=== PATIENT | female | born 1975 | race American Indian/Alaskan Native ===

== ENCOUNTER 2019-04-14 10:37 | Inpatient (IN) | payer OTHER ==
[2019-04-14] MEDS ORDERED: SODIUM CHLORIDE 0.9% 500 ML 500 ML IV ONE ×2 (10:49→12:30)
[2019-04-14 11:02] LABS: Hematocrit 39.3 % (30.3-42.9); Hemoglobin 12.9 gm/dl (10.1-14.3); Mean Corpuscular HGB Conc 33 % (30-34); Mean Corpuscular Volume 81 fl (79-97); Platelet Count 134 K/mm3 (140-440); Red Blood Count 4.83 M/mm3 (3.65-5.03); Red Cell Distribution Width 14.3 % (13.2-15.2)
[2019-04-14 11:17] LABS: Albumin 3.5 g/dL (3.9-5)
[2019-04-14 11:24] LABS: INR 1.08 (0.87-1.13)
[2019-04-14] MEDS ORDERED: CEFEPIME/NS 2 GM/100 ML 2 GM/100 ML BAG IV ONE (11:26)
--- NOTE | 2019-04-14 12:14 | XRay Report ---
CHEST 1 VIEW INDICATION: possible Sepsis. COMPARISON: None FINDINGS: Support devices: None. Heart: Within normal limits. Lungs/Pleura: No acute air space or interstitial disease. Additional findings: None. IMPRESSION: No acute findings. Signer Name: Bolivar Griffin Jr, MD Signed: 04/14/2019 12:09 PM Workstation Name: [id number]
[2019-04-14] MEDS ORDERED: SODIUM CHLORIDE 0.9% 1000 ML 1,000 ML IV ONE ×2 (12:31→13:46)
[2019-04-14 12:33] LABS: Bacteria,Urine 1+ /HPF (Negative); Bilirubin,Urine NEG (Negative); Blood,Urine MOD (Negative); Color,Urine Amber (Yellow); Mucus,Urine FEW /HPF
[2019-04-14 12:52] LABS: Basophils % (Manual) 0 % (0.0-1.8); Eosinophils % (Manual) 0 % (0.0-4.3); Total Cells Counted 100
[2019-04-14 12:53] LABS: Anisocytosis Few; Platelet Estimate Consistent w Auto
[2019-04-14] MEDS ORDERED: ACETAMINOPHEN 500 MG TAB PO ONE (13:43)
--- NOTE | 2019-04-14 14:10 | Emergency Department Report ---
ED General Adult HPI - General Chief complaint: Skin/Abscess/Foreign Body Stated complaint: SEVERE DEHYDRATION Time Seen by Provider: 04/14/19 11:22 Source: patient Mode of arrival: Wheelchair Limitations: No Limitations - History of Present Illness Initial comments: The patient presents to the emergency department with a chief complaint of not feeling well and having a fever since Sunday. Patient also complains of an abscess underneath her left arm that she's had multiple times in the past. Patient denies any abdominal pain, chest pain, shortness of breath. -: Gradual Severity scale (0 -10): 0 Consistency: constant Improves with: none Worsens with: none Associated Symptoms: denies other symptoms Treatments Prior to Arrival: none - Related Data Allergies Allergy/AdvReac Type Severity Reaction Status Date / Time No Known Allergies Allergy Unverified 04/14/19 10:45 ED Review of Systems ROS: Stated complaint: SEVERE DEHYDRATION Other details as noted in HPI Comment: All other systems reviewed and negative Constitutional: denies: chills, fever Eyes: denies: eye pain, eye discharge, vision change ENT: denies: ear pain, throat pain Respiratory: denies: cough, shortness of breath, wheezing Cardiovascular: denies: chest pain, palpitations Endocrine: no symptoms reported Gastrointestinal: denies: abdominal pain, nausea, diarrhea Genitourinary: denies: urgency, dysuria, discharge Musculoskeletal: denies: back pain, joint swelling, arthralgia Skin: denies: rash, lesions Neurological: denies: headache, weakness, paresthesias Psychiatric: denies: anxiety, depression Hematological/Lymphatic: denies: easy bleeding, easy bruising ED Past Medical Hx - Past Medical History Previous Medical History?: Yes Additional medical history: Chronic lower back pain - Surgical History Past Surgical History?: No - Social History Smoking Status: Never Smoker Substance Use Type: Marijuana ED Physical Exam - General Limitations: No Limitations General appearance: alert, in no apparent distress - Head Head exam: Present: atraumatic, normocephalic - Eye Eye exam: Present: normal appearance, PERRL, EOMI - ENT ENT exam: Present: mucous membranes dry - Neck Neck exam: Present: normal inspection - Respiratory Respiratory exam: Present: normal lung sounds bilaterally. Absent: respiratory distress - Cardiovascular Cardiovascular Exam: Present: normal rhythm, tachycardia. Absent: systolic murmur, diastolic murmur, rubs, gallop - GI/Abdominal GI/Abdominal exam: Present: soft, normal bowel sounds. Absent: distended, tenderness - Extremities Exam Extremities exam: Present: normal inspection, other (left axilla has a lesion consistent with hidradenitis suppurativa) - Back Exam Back exam: Present: normal inspection - Neurological Exam Neurological exam: Present: alert, oriented X3, CN II-XII intact. Absent: motor sensory deficit - Psychiatric Psychiatric exam: Present: normal affect, normal mood - Skin Skin exam: Present: warm, dry, intact, normal color. Absent: rash ED Course Vital Signs 04/14/19 04/14/19 04/14/19 10:53 11:41 13:54 Temperature 101.7 F H 103.2 F H 102.4 F H Pulse Rate 148 H 135 H Respiratory 20 Rate Blood Pressure 108/66 Blood Pressure 120/72 [Right] O2 Sat by Pulse 98 100 Oximetry ED Medical Decision Making - Lab Data Result diagrams: 04/14/19 10:52 04/14/19 10:52 Lab Results 04/14/19 04/14/19 04/14/19 Range/Units 10:52 10:52 10:52 WBC 21.3 H (4.5-11.0) K/mm3 RBC 4.83 (3.65-5.03) M/mm3 Hgb 12.9 (10.1-14.3) gm/dl Hct 39.3 (30.3-42.9) % MCV 81 (79-97) fl MCH 27 L (28-32) pg MCHC 33 (30-34) % RDW 14.3 (13.2-15.2) % Plt Count 134 L (140-440) K/mm3 Add Manual Diff Complete Total Counted 100 Seg Neutrophils % Therapeutic Program Worker Seg Neuts % (Manual) 97.0 H (40.0-70.0) % Band Neutrophils % 0 % Lymphocytes % (Manual) 2.0 L (13.4-35.0) % Reactive Lymphs % (Man) 0 % Monocytes % (Manual) 1.0 (0.0-7.3) % Eosinophils % (Manual) 0 (0.0-4.3) % Basophils % (Manual) 0 (0.0-1.8) % Metamyelocytes % 0 % Myelocytes % 0 % Promyelocytes % 0 % Blast Cells % 0 % Nucleated RBC % Not Reportable Seg Neutrophils # Man 20.7 H (1.8-7.7) K/mm3 Band Neutrophils # 0.0 K/mm3 Lymphocytes # (Manual) 0.4 L (1.2-5.4) K/mm3 Abs React Lymphs (Man) 0.0 K/mm3 Monocytes # (Manual) 0.2 (0.0-0.8) K/mm3 Eosinophils # (Manual) 0.0 (0.0-0.4) K/mm3 Basophils # (Manual) 0.0 (0.0-0.1) K/mm3 Metamyelocytes # 0.0 K/mm3 Myelocytes # 0.0 K/mm3 Promyelocytes # 0.0 K/mm3 Blast Cells # 0.0 K/mm3 WBC Morphology Not Reportable Hypersegmented Neuts Not Reportable Hyposegmented Neuts Not Reportable Hypogranular Neuts Not Reportable Smudge Cells Not Reportable Toxic Granulation Not Reportable Toxic Vacuolation Not Reportable Dohle Bodies Not Reportable Pelger-Huet Anomaly Not Reportable Ab Rods Not Reportable Platelet Estimate Consistent w auto Clumped Platelets Not Reportable Plt Clumps, EDTA Not Reportable Large Platelets Not Reportable Giant Platelets Not Reportable Platelet Satelliting Not Reportable Plt Morphology Comment Not Reportable RBC Morphology Not Reportable Dimorphic RBCs Not Reportable Polychromasia Not Reportable Hypochromasia Not Reportable Poikilocytosis Not Reportable Anisocytosis Few Microcytosis Not Reportable Macrocytosis Not Reportable Spherocytes Not Reportable Pappenheimer Bodies Not Reportable Sickle Cells Not Reportable Target Cells Not Reportable Tear Drop Cells Not Reportable Ovalocytes Not Reportable Helmet Cells Not Reportable [place] Bodies Not Reportable [place] Rings Not Reportable [place] Cells Not Reportable Bite Cells Not Reportable Crenated Cell Not Reportable Elliptocytes Not Reportable Acanthocytes (Spur) Not Reportable Rouleaux Not Reportable Hemoglobin C Crystals Not Reportable Schistocytes Not Reportable Malaria parasites Not Reportable Mg Bodies Not Reportable Hem Pathologist Commnt No PT 13.9 (12.2-14.9) Sec. INR 1.08 (0.87-1.13) VBG pH (7.320-7.420) Sodium 129 L (137-145) mmol/L Potassium 3.4 L (3.6-5.0) mmol/L Chloride 92.7 L (98-107) mmol/L Carbon Dioxide 17 L (22-30) mmol/L Anion Gap 23 mmol/L BUN 49 H (7-17) mg/dL Creatinine 3.8 H (0.7-1.2) mg/dL Estimated GFR 13 ml/min BUN/Creatinine Ratio 13 % Glucose 156 H (65-100) mg/dL Lactic Acid (0.7-2.0) mmol/L Calcium 8.0 L (8.4-10.2) mg/dL Total Bilirubin 0.80 (0.1-1.2) mg/dL AST 25 (5-40) units/L ALT 22 (7-56) units/L Alkaline Phosphatase 74 (35-129) units/L Total Protein 7.2 (6.3-8.2) g/dL Albumin 3.5 L (3.9-5) g/dL Albumin/Globulin Ratio 0.9 % Urine Color (Yellow) Urine Turbidity (Clear) Urine pH (5.0-7.0) Ur Specific [place] (1.003-1.030) Urine Protein (Negative) mg/dL Urine Glucose (UA) (Negative) mg/dL Urine Ketones (Negative) mg/dL Urine Blood (Negative) Urine Nitrite (Negative) Urine Bilirubin (Negative) Urine Urobilinogen (<2.0) mg/dL Ur Leukocyte Esterase (Negative) Urine WBC (Auto) (0.0-6.0) /HPF Urine RBC (Auto) (0.0-6.0) /HPF U Epithel Cells (Auto) (0-13.0) /HPF Urine Bacteria (Auto) (Negative) /HPF Urine Mucus /HPF 04/14/19 04/14/19 04/14/19 Range/Units 10:52 10:52 12:06 WBC (4.5-11.0) K/mm3 RBC (3.65-5.03) M/mm3 Hgb (10.1-14.3) gm/dl Hct (30.3-42.9) % MCV (79-97) fl MCH (28-32) pg MCHC (30-34) % RDW (13.2-15.2) % Plt Count (140-440) K/mm3 Add Manual Diff Total Counted Seg Neutrophils % Seg Neuts % (Manual) (40.0-70.0) % Band Neutrophils % % Lymphocytes % (Manual) (13.4-35.0) % Reactive Lymphs % (Man) % Monocytes % (Manual) (0.0-7.3) % Eosinophils % (Manual) (0.0-4.3) % Basophils % (Manual) (0.0-1.8) % Metamyelocytes % % Myelocytes % % Promyelocytes % % Blast Cells % % Nucleated RBC % Seg Neutrophils # Man (1.8-7.7) K/mm3 Band Neutrophils # K/mm3 Lymphocytes # (Manual) (1.2-5.4) K/mm3 Abs React Lymphs (Man) K/mm3 Monocytes # (Manual) (0.0-0.8) K/mm3 Eosinophils # (Manual) (0.0-0.4) K/mm3 Basophils # (Manual) (0.0-0.1) K/mm3 Metamyelocytes # K/mm3 Myelocytes # K/mm3 Promyelocytes # K/mm3 Blast Cells # K/mm3 WBC Morphology Hypersegmented Neuts Hyposegmented Neuts Hypogranular Neuts Smudge Cells Toxic Granulation Toxic Vacuolation Dohle Bodies Pelger-Huet Anomaly Ab Rods Platelet Estimate Clumped Platelets Plt Clumps, EDTA Large Platelets Giant Platelets Platelet Satelliting Plt Morphology Comment RBC Morphology Dimorphic RBCs Polychromasia Hypochromasia Poikilocytosis Anisocytosis Microcytosis Macrocytosis Spherocytes Pappenheimer Bodies Sickle Cells Target Cells Tear Drop Cells Ovalocytes Helmet Cells [place] Bodies [place] Rings [place] Cells Bite Cells Crenated Cell Elliptocytes Acanthocytes (Spur) Rouleaux Hemoglobin C Crystals Schistocytes Malaria parasites Mg Bodies Hem Pathologist Commnt PT (12.2-14.9) Sec. INR (0.87-1.13) VBG pH 7.468 H (7.320-7.420) Sodium (137-145) mmol/L Potassium (3.6-5.0) mmol/L Chloride (98-107) mmol/L Carbon Dioxide (22-30) mmol/L Anion Gap mmol/L BUN (7-17) mg/dL Creatinine (0.7-1.2) mg/dL Estimated GFR ml/min BUN/Creatinine Ratio % Glucose (65-100) mg/dL Lactic Acid 2.10 H* (0.7-2.0) mmol/L Calcium (8.4-10.2) mg/dL Total Bilirubin (0.1-1.2) mg/dL AST (5-40) units/L ALT (7-56) units/L Alkaline Phosphatase (35-129) units/L Total Protein (6.3-8.2) g/dL Albumin (3.9-5) g/dL Albumin/Globulin Ratio % Urine Color [place] (Yellow) Urine Turbidity Cloudy (Clear) Urine pH 5.0 (5.0-7.0) Ur Specific [place] 1.015 (1.003-1.030) Urine Protein 100 mg/dl (Negative) mg/dL Urine Glucose (UA) 50 (Negative) mg/dL Urine Ketones Neg (Negative) mg/dL Urine Blood Mod (Negative) Urine Nitrite Neg (Negative) Urine Bilirubin Neg (Negative) Urine Urobilinogen 4.0 (<2.0) mg/dL Ur Leukocyte Esterase Mod (Negative) Urine WBC (Auto) 38.0 H (0.0-6.0) /HPF Urine RBC (Auto) 14.0 (0.0-6.0) /HPF U Epithel Cells (Auto) 7.0 (0-13.0) /HPF Urine Bacteria (Auto) 1+ (Negative) /HPF Urine Mucus Few /HPF 04/14/19 Range/Units 12:12 WBC (4.5-11.0) K/mm3 RBC (3.65-5.03) M/mm3 Hgb (10.1-14.3) gm/dl Hct (30.3-42.9) % MCV (79-97) fl MCH (28-32) pg MCHC (30-34) % RDW (13.2-15.2) % Plt Count (140-440) K/mm3 Add Manual Diff Total Counted Seg Neutrophils % Seg Neuts % (Manual) (40.0-70.0) % Band Neutrophils % % Lymphocytes % (Manual) (13.4-35.0) % Reactive Lymphs % (Man) % Monocytes % (Manual) (0.0-7.3) % Eosinophils % (Manual) (0.0-4.3) % Basophils % (Manual) (0.0-1.8) % Metamyelocytes % % Myelocytes % % Promyelocytes % % Blast Cells % % Nucleated RBC % Seg Neutrophils # Man (1.8-7.7) K/mm3 Band Neutrophils # K/mm3 Lymphocytes # (Manual) (1.2-5.4) K/mm3 Abs React Lymphs (Man) K/mm3 Monocytes # (Manual) (0.0-0.8) K/mm3 Eosinophils # (Manual) (0.0-0.4) K/mm3 Basophils # (Manual) (0.0-0.1) K/mm3 Metamyelocytes # K/mm3 Myelocytes # K/mm3 Promyelocytes # K/mm3 Blast Cells # K/mm3 WBC Morphology Hypersegmented Neuts Hyposegmented Neuts Hypogranular Neuts Smudge Cells Toxic Granulation Toxic Vacuolation Dohle Bodies Pelger-Huet Anomaly Ab Rods Platelet Estimate Clumped Platelets Plt Clumps, EDTA Large Platelets Giant Platelets Platelet Satelliting Plt Morphology Comment RBC Morphology Dimorphic RBCs Polychromasia Hypochromasia Poikilocytosis Anisocytosis Microcytosis Macrocytosis Spherocytes Pappenheimer Bodies Sickle Cells Target Cells Tear Drop Cells Ovalocytes Helmet Cells [place] Bodies [place] Rings [place] Cells Bite Cells Crenated Cell Elliptocytes Acanthocytes (Spur) Rouleaux Hemoglobin C Crystals Schistocytes Malaria parasites Mg Bodies Hem Pathologist Commnt PT (12.2-14.9) Sec. INR (0.87-1.13) VBG pH (7.320-7.420) Sodium (137-145) mmol/L Potassium (3.6-5.0) mmol/L Chloride (98-107) mmol/L Carbon Dioxide (22-30) mmol/L Anion Gap mmol/L BUN (7-17) mg/dL Creatinine (0.7-1.2) mg/dL Estimated GFR ml/min BUN/Creatinine Ratio % Glucose (65-100) mg/dL Lactic Acid 2.40 H* (0.7-2.0) mmol/L Calcium (8.4-10.2) mg/dL Total Bilirubin (0.1-1.2) mg/dL AST (5-40) units/L ALT (7-56) units/L Alkaline Phosphatase (35-129) units/L Total Protein (6.3-8.2) g/dL Albumin (3.9-5) g/dL Albumin/Globulin Ratio % Urine Color (Yellow) Urine Turbidity (Clear) Urine pH (5.0-7.0) Ur Specific [place] (1.003-1.030) Urine Protein (Negative) mg/dL Urine Glucose (UA) (Negative) mg/dL Urine Ketones (Negative) mg/dL Urine Blood (Negative) Urine Nitrite (Negative) Urine Bilirubin (Negative) Urine Urobilinogen (<2.0) mg/dL Ur Leukocyte Esterase (Negative) Urine WBC (Auto) (0.0-6.0) /HPF Urine RBC (Auto) (0.0-6.0) /HPF U Epithel Cells (Auto) (0-13.0) /HPF Urine Bacteria (Auto) (Negative) /HPF Urine Mucus /HPF - EKG Data -: EKG Interpreted by Me EKG shows normal: sinus rhythm Rate: tachycardia - Radiology Data Radiology results: report reviewed - Medical Decision Making IV fluids started IV abx given The patient was informed of results Critical Care Time: Yes Critical care time in (mins) excluding proc time.: 35 Critical care attestation.: If time is entered above; I have spent that time in minutes in the direct care of this critically ill patient, excluding procedure time. ED Disposition Clinical Impression: Sepsis, Renal failure Disposition: OP ADMIT IP TO THIS HOSP Is pt being admited?: Yes Does the pt Need Aspirin: No Condition: Fair Referrals: MIMI GODFREY [Other] - 3-5 Days
--- NOTE | 2019-04-14 15:24 | History and Physical Report ---
History of Present Illness Date of examination: 04/14/19 Date of admission: 04/14/19 14:39 Chief complaint: Fever for 2 days History of present illness: 44 year old female with history of recurrent abscesses coming in for Fever since 2 days.Patient has a abscess under her L arm.No cough or abdominal pain.Some dysuria present. Past Medical History Previous Medical History?: Yes Additional medical history: Chronic lower back pain - Surgical History Past Surgical History?: No - Social History Smoking Status: Never Smoker Substance Use Type: Marijuana Family History Htn Review of Systems ROS: Stated complaint: SEVERE DEHYDRATION Other details as noted in HPI Comment: All other systems reviewed and negative Constitutional: denies: chills, fever Eyes: denies: eye pain, eye discharge, vision change ENT: denies: ear pain, throat pain Respiratory: denies: cough, shortness of breath, wheezing Cardiovascular: denies: chest pain, palpitations Endocrine: no symptoms reported Gastrointestinal: denies: abdominal pain, nausea, diarrhea Genitourinary: denies: urgency, dysuria, discharge Musculoskeletal: denies: back pain, joint swelling, arthralgia Skin: denies: rash, lesions Neurological: denies: headache, weakness, paresthesias Psychiatric: denies: anxiety, depression Hematological/Lymphatic: denies: easy bleeding, easy bruising Medications and Allergies Allergies Allergy/AdvReac Type Severity Reaction Status Date / Time No Known Allergies Allergy Unverified 04/14/19 10:45 Home Medications Medication Instructions Recorded Confirmed Last Taken Type Doxepin [SINEquan] 50 mg PO HS 04/14/19 04/14/19 04/10/19 History Gabapentin [Neurontin] 800 mg PO TID 04/14/19 04/14/19 Unknown History Ibuprofen [Motrin 800 MG tab] 800 mg PO TID PRN 04/14/19 04/14/19 Unknown History Quetiapine Fumarate [SEROquel] 200 mg PO QHS 04/14/19 04/14/19 Unknown History Exam - Constitutional Vitals: Temp Pulse Resp BP Pulse Ox 100.9 F H 115 H 20 107/61 100 04/14/19 15:19 04/14/19 15:19 04/14/19 15:19 04/14/19 15:19 04/14/19 15:19 General appearance: Present: no acute distress, well-nourished - EENT Eyes: Present: PERRL ENT: hearing intact, clear oral mucosa - Neck Neck: Present: supple, normal ROM - Respiratory Respiratory effort: normal Respiratory: bilateral: CTA - Cardiovascular Heart rate: 78 Rhythm: regular Heart Sounds: Present: S1 & S2. Absent: rub, click - Extremities Extremities: no ischemia, pulses intact, pulses symmetrical, No edema Peripheral Pulses: within normal limits - Abdominal General gastrointestinal: Present: soft, non-tender, non-distended, normal bowel sounds Female genitourinary: Present: normal - Rectal Rectal Exam: deferred - Integumentary Integumentary: Present: clear, warm, dry - Musculoskeletal Musculoskeletal: gait normal, strength equal bilaterally - Psychiatric Psychiatric: appropriate mood/affect, intact judgment & insight - Neurologic Neurologic: CNII-XII intact, moves all extremities Results - Labs CBC & Chem 7: 04/14/19 10:52 04/14/19 10:52 Labs: Laboratory Last Values WBC 21.3 K/mm3 (4.5-11.0) H 04/14/19 10:52 RBC 4.83 M/mm3 (3.65-5.03) 04/14/19 10:52 Hgb 12.9 gm/dl (10.1-14.3) 04/14/19 10:52 Hct 39.3 % (30.3-42.9) 04/14/19 10:52 MCV 81 fl (79-97) 04/14/19 10:52 MCH 27 pg (28-32) L 04/14/19 10:52 MCHC 33 % (30-34) 04/14/19 10:52 RDW 14.3 % (13.2-15.2) 04/14/19 10:52 Plt Count 134 K/mm3 (140-440) L 04/14/19 10:52 Add Manual Diff Complete 04/14/19 10:52 Total Counted 100 04/14/19 10:52 Seg Neutrophils % Wool Fleece Grader 04/14/19 10:52 Seg Neuts % (Manual) 97.0 % (40.0-70.0) H 04/14/19 10:52 Band Neutrophils % 0 % 04/14/19 10:52 Lymphocytes % (Manual) 2.0 % (13.4-35.0) L 04/14/19 10:52 Reactive Lymphs % (Man) 0 % 04/14/19 10:52 Monocytes % (Manual) 1.0 % (0.0-7.3) 04/14/19 10:52 Eosinophils % (Manual) 0 % (0.0-4.3) 04/14/19 10:52 Basophils % (Manual) 0 % (0.0-1.8) 04/14/19 10:52 Metamyelocytes % 0 % 04/14/19 10:52 Myelocytes % 0 % 04/14/19 10:52 Promyelocytes % 0 % 04/14/19 10:52 Blast Cells % 0 % 04/14/19 10:52 Nucleated RBC % Not Reportable 04/14/19 10:52 Seg Neutrophils # Man 20.7 K/mm3 (1.8-7.7) H 04/14/19 10:52 Band Neutrophils # 0.0 K/mm3 04/14/19 10:52 Lymphocytes # (Manual) 0.4 K/mm3 (1.2-5.4) L 04/14/19 10:52 Abs React Lymphs (Man) 0.0 K/mm3 04/14/19 10:52 Monocytes # (Manual) 0.2 K/mm3 (0.0-0.8) 04/14/19 10:52 Eosinophils # (Manual) 0.0 K/mm3 (0.0-0.4) 04/14/19 10:52 Basophils # (Manual) 0.0 K/mm3 (0.0-0.1) 04/14/19 10:52 Metamyelocytes # 0.0 K/mm3 04/14/19 10:52 Myelocytes # 0.0 K/mm3 04/14/19 10:52 Promyelocytes # 0.0 K/mm3 04/14/19 10:52 Blast Cells # 0.0 K/mm3 04/14/19 10:52 WBC Morphology Not Reportable 04/14/19 10:52 Hypersegmented Neuts Not Reportable 04/14/19 10:52 Hyposegmented Neuts Not Reportable 04/14/19 10:52 Hypogranular Neuts Not Reportable 04/14/19 10:52 Smudge Cells Not Reportable 04/14/19 10:52 Toxic Granulation Not Reportable 04/14/19 10:52 Toxic Vacuolation Not Reportable 04/14/19 10:52 Dohle Bodies Not Reportable 04/14/19 10:52 Pelger-Huet Anomaly Not Reportable 04/14/19 10:52 Ab Rods Not Reportable 04/14/19 10:52 Platelet Estimate Consistent w auto 04/14/19 10:52 Clumped Platelets Not Reportable 04/14/19 10:52 Plt Clumps, EDTA Not Reportable 04/14/19 10:52 Large Platelets Not Reportable 04/14/19 10:52 Giant Platelets Not Reportable 04/14/19 10:52 Platelet Satelliting Not Reportable 04/14/19 10:52 Plt Morphology Comment Not Reportable 04/14/19 10:52 RBC Morphology Not Reportable 04/14/19 10:52 Dimorphic RBCs Not Reportable 04/14/19 10:52 Polychromasia Not Reportable 04/14/19 10:52 Hypochromasia Not Reportable 04/14/19 10:52 Poikilocytosis Not Reportable 04/14/19 10:52 Anisocytosis Few 04/14/19 10:52 Microcytosis Not Reportable 04/14/19 10:52 Macrocytosis Not Reportable 04/14/19 10:52 Spherocytes Not Reportable 04/14/19 10:52 Pappenheimer Bodies Not Reportable 04/14/19 10:52 Sickle Cells Not Reportable 04/14/19 10:52 Target Cells Not Reportable 04/14/19 10:52 Tear Drop Cells Not Reportable 04/14/19 10:52 Ovalocytes Not Reportable 04/14/19 10:52 Helmet Cells Not Reportable 04/14/19 10:52 [place] Bodies Not Reportable 04/14/19 10:52 [place] Rings Not Reportable 04/14/19 10:52 Fly Cells Not Reportable 04/14/19 10:52 Bite Cells Not Reportable 04/14/19 10:52 Crenated Cell Not Reportable 04/14/19 10:52 Elliptocytes Not Reportable 04/14/19 10:52 Acanthocytes (Spur) Not Reportable 04/14/19 10:52 Rouleaux Not Reportable 04/14/19 10:52 Hemoglobin C Crystals Not Reportable 04/14/19 10:52 Schistocytes Not Reportable 04/14/19 10:52 Malaria parasites Not Reportable 04/14/19 10:52 Mg Bodies Not Reportable 04/14/19 10:52 Hem Pathologist Commnt No 04/14/19 10:52 PT 13.9 Sec. (12.2-14.9) 04/14/19 10:52 INR 1.08 (0.87-1.13) 04/14/19 10:52 VBG pH 7.468 (7.320-7.420) H 04/14/19 10:52 Sodium 129 mmol/L (137-145) L 04/14/19 10:52 Potassium 3.4 mmol/L (3.6-5.0) L 04/14/19 10:52 Chloride 92.7 mmol/L (98-107) L 04/14/19 10:52 Carbon Dioxide 17 mmol/L (22-30) L 04/14/19 10:52 Anion Gap 23 mmol/L 04/14/19 10:52 BUN 49 mg/dL (7-17) H 04/14/19 10:52 Creatinine 3.8 mg/dL (0.7-1.2) H 04/14/19 10:52 Estimated GFR 13 ml/min 04/14/19 10:52 BUN/Creatinine Ratio 13 % 04/14/19 10:52 Glucose 156 mg/dL (65-100) H 04/14/19 10:52 Lactic Acid 1.60 mmol/L (0.7-2.0) 04/14/19 14:43 Calcium 8.0 mg/dL (8.4-10.2) L 04/14/19 10:52 Total Bilirubin 0.80 mg/dL (0.1-1.2) 04/14/19 10:52 AST 25 units/L (5-40) 04/14/19 10:52 ALT 22 units/L (7-56) 04/14/19 10:52 Alkaline Phosphatase 74 units/L (35-129) 04/14/19 10:52 Total Protein 7.2 g/dL (6.3-8.2) 04/14/19 10:52 Albumin 3.5 g/dL (3.9-5) L 04/14/19 10:52 Albumin/Globulin Ratio 0.9 % 04/14/19 10:52 Urine Color [place] (Yellow) 04/14/19 12:06 Urine Turbidity Cloudy (Clear) 04/14/19 12:06 Urine pH 5.0 (5.0-7.0) 04/14/19 12:06 Ur Specific [place] 1.015 (1.003-1.030) 04/14/19 12:06 Urine Protein 100 mg/dl mg/dL (Negative) 04/14/19 12:06 Urine Glucose (UA) 50 mg/dL (Negative) 04/14/19 12:06 Urine Ketones Neg mg/dL (Negative) 04/14/19 12:06 Urine Blood Mod (Negative) 04/14/19 12:06 Urine Nitrite Neg (Negative) 04/14/19 12:06 Urine Bilirubin Neg (Negative) 04/14/19 12:06 Urine Urobilinogen 4.0 mg/dL (<2.0) 04/14/19 12:06 Ur Leukocyte Esterase Mod (Negative) 04/14/19 12:06 Urine WBC (Auto) 38.0 /HPF (0.0-6.0) H 04/14/19 12:06 Urine RBC (Auto) 14.0 /HPF (0.0-6.0) 04/14/19 12:06 U Epithel Cells (Auto) 7.0 /HPF (0-13.0) 04/14/19 12:06 Urine Bacteria (Auto) 1+ /HPF (Negative) 04/14/19 12:06 Urine Mucus Few /HPF 04/14/19 12:06 Short CBC 04/14/19 Range/Units 10:52 WBC 21.3 H (4.5-11.0) K/mm3 Hgb 12.9 (10.1-14.3) gm/dl Hct 39.3 (30.3-42.9) % Plt Count 134 L (140-440) K/mm3 BMP 04/14/19 10:52 Sodium 129 L Potassium 3.4 L Chloride 92.7 L Carbon Dioxide 17 L BUN 49 H Creatinine 3.8 H Glucose 156 H Calcium 8.0 L Liver Function 04/14/19 Range/Units 10:52 Total Bilirubin 0.80 (0.1-1.2) mg/dL AST 25 (5-40) units/L ALT 22 (7-56) units/L Alkaline Phosphatase 74 (35-129) units/L Albumin 3.5 L (3.9-5) g/dL Urine 04/14/19 Range/Units 12:06 Urine Color [place] (Yellow) Urine pH 5.0 (5.0-7.0) Ur Specific [place] 1.015 (1.003-1.030) Urine Protein 100 mg/dl (Negative) mg/dL Urine Glucose (UA) 50 (Negative) mg/dL - Imaging and Cardiology Chest x-ray: report reviewed Assessment and Plan Advance Directives: Yes (Full code) VTE prophylaxis?: Chemical Plan of care discussed with patient/family: Yes - Patient Problems (1) Sepsis Current Visit: Yes Status: Acute Qualifiers: Severe sepsis shock status: without septic shock Plan to address problem: patient has high Lactic acid and Leukocytosis Irine and abscess may be the source of infection. Abd CT pending. Patient initiated on IV Cefepime and IV Vancomycin. pressors if nicessary. (2) HARDIK (acute kidney injury) Current Visit: Yes Status: Acute Plan to address problem: IV fluids for now Nephrology consult ATN is a high possibility (3) Hyponatremia Current Visit: Yes Status: Acute Plan to address problem: IV NS for now. (4) Hypokalemia Current Visit: Yes Status: Acute Plan to address problem: Supplemented (5) Abscess Current Visit: Yes Status: Acute Plan to address problem: l Arm abscess Surgery consulted (6) UTI (urinary tract infection) Current Visit: Yes Status: Acute Qualifiers: Urinary tract infection type: acute cystitis Plan to address problem: On Cefepime pending culture (7) DVT prophylaxis Current Visit: Yes Status: Acute
[2019-04-14] MEDS: ONDANSETRON 4 MG/2 ML INJ IV PRN (16:46)
[2019-04-14] MEDS: SODIUM CHLORIDE 0.9% 1000 ML 1,000 ML IV SCH (16:46)
[2019-04-14] MEDS: ACETAMINOPHEN 325 MG TAB PO PRN (19:55)
[2019-04-14] MEDS ORDERED: IBUPROFEN 800 MG TAB PO PRN (21:38)
[2019-04-14] MEDS ORDERED: DOXEPIN 50 MG PO SCH (22:00)
[2019-04-14] MEDS ORDERED: QUETIAPINE FUMARATE 200 MG PO SCH (22:00)
[2019-04-14] MEDS: DOXEPIN 25 MG CAP PO SCH (22:44)
[2019-04-14] MEDS: QUEtiapine 200 MG TAB PO SCH (22:44)
[2019-04-15] MEDS ORDERED: VANCOMYCIN 1,250 MG in SODIUM CHLORIDE 0.9% 250ML 250 ML IV ONE (01:00)
[2019-04-15] MEDS ORDERED: VANCOMYCIN PHARMACY TO DOSE IV SCH (01:00)
[2019-04-15] MEDS ORDERED: CEFEPIME/NS 1 GM/100 ML 1 GM/100 ML BAG IV SCH ×2 (01:00→10:00)
[2019-04-15] MEDS: SODIUM CHLORIDE 0.9% 1000 ML 1,000 ML IV SCH ×3 (02:02→23:01)
--- NOTE | 2019-04-15 02:40 | Cat Scan Report ---
CT abdomen pelvis wo con INDICATION / CLINICAL INFORMATION: sepsis. TECHNIQUE: Axial CT imaging of abdomen and pelvis was obtained without contrast. Coronal and sagittal reformatte d imaging obtained and reviewed. All CT scans at this location are performed using CT dose reduction for ALARA by means of automated exposure control. COMPARISON: None available. FINDINGS: CT abdomen without contrast demonstrates grossly normal appearance of the liver, pancreas, and adrena l glands. The spleen contains a 2 cm hypodense mass inferiorly. The mass is more than likely benign. Both kidneys appear enlarged measuring approximately 13.6 cm in length. There are a few punctate calc bhaskar within the right kidney. There is mild perinephric inflammatory change bilaterally. No hydronephr osis or obvious renal mass identified on this noncontrasted CT scan. CT pelvis without contrast demonstrates no evidence of pelvic mass, free fluid, or focal inflammatory change. A normal appendix is visualized. GI tract is grossly unremarkable. Incidental note is made of small umbilical hernia containing only fat. Visualized lung bases are clear. No significant osseous abnormality. IMPRESSION: 1. Both kidneys are enlarged and appear edematous in appearance. The possibility of pyelonephritis an d/or nephritis should be considered. There is no hydronephrosis noted. 2. Right nephrolithiasis without obstruction. 3. Incidental finding of a 2 cm splenic mass, felt to most likely be benign. Signer Name: Nara Oleary MD Signed: 04/15/2019 2:36 AM Workstation Name: [id number]
[2019-04-15] MEDS ORDERED: NON-FORMULARY EACH (Gabapentin [Neurontin] 800 MG) PO SCH (08:00)
[2019-04-15] MEDS: GABAPENTIN 400 MG CAP PO SCH ×3 (08:47→21:40)
--- NOTE | 2019-04-15 12:35 | Progress Note ---
Assessment and Plan Assessment and plan: Sepsis patient has high Lactic acid and Leukocytosis UTI and abscess may be the source of infection. Abd CT revealed both kidneys were enlarged and appeared edematous with possib ility of pyelonephritis and/or nephritis. No hydronephrosis. Right nephrolithiasis without obstruction.. Patient initiated on IV Cefepime and IV Vancomycin. pressors if nicessary. HARDIK (acute kidney injury) IV fluids for now Nephrology consult ATN is a high possibility Hyponatremia Follow-up BMP IV NS for now. Hypokalemia Supplemented Left axillary Abscess Surgery consulted Pyelonephritis/UTI (urinary tract infection) CT results noted as above On Cefepime pending culture DVT prophylaxis History Interval history: No New issues overnight Hospitalist Physical - Constitutional Vitals: Temp Pulse Resp BP Pulse Ox 98.9 F 117 H 19 99/57 99 04/15/19 11:47 04/15/19 11:47 04/15/19 11:47 04/15/19 11:47 04/15/19 11:47 General appearance: Present: no acute distress, well-nourished - EENT Eyes: Present: PERRL, EOM intact ENT: hearing intact, clear oral mucosa, dentition normal - Neck Neck: Present: supple, normal ROM - Respiratory Respiratory effort: normal Respiratory: bilateral: CTA - Cardiovascular Rhythm: regular Heart Sounds: Present: S1 & S2. Absent: gallop, rub - Extremities Extremities: no ischemia, No edema, Full ROM - Abdominal General gastrointestinal: soft, non-tender, non-distended, normal bowel sounds - Integumentary Integumentary: Present: clear, warm, dry - Neurologic Neurologic: CNII-XII intact, moves all extremities Results - Labs CBC & Chem 7: 04/14/19 10:52 04/14/19 10:52 Labs: Laboratory Last Values WBC 21.3 K/mm3 (4.5-11.0) H 04/14/19 10:52 RBC 4.83 M/mm3 (3.65-5.03) 04/14/19 10:52 Hgb 12.9 gm/dl (10.1-14.3) 04/14/19 10:52 Hct 39.3 % (30.3-42.9) 04/14/19 10:52 MCV 81 fl (79-97) 04/14/19 10:52 MCH 27 pg (28-32) L 04/14/19 10:52 MCHC 33 % (30-34) 04/14/19 10:52 RDW 14.3 % (13.2-15.2) 04/14/19 10:52 Plt Count 134 K/mm3 (140-440) L 04/14/19 10:52 Add Manual Diff Complete 04/14/19 10:52 Total Counted 100 04/14/19 10:52 Seg Neutrophils % Senior Test Analyst 04/14/19 10:52 Seg Neuts % (Manual) 97.0 % (40.0-70.0) H 04/14/19 10:52 Band Neutrophils % 0 % 04/14/19 10:52 Lymphocytes % (Manual) 2.0 % (13.4-35.0) L 04/14/19 10:52 Reactive Lymphs % (Man) 0 % 04/14/19 10:52 Monocytes % (Manual) 1.0 % (0.0-7.3) 04/14/19 10:52 Eosinophils % (Manual) 0 % (0.0-4.3) 04/14/19 10:52 Basophils % (Manual) 0 % (0.0-1.8) 04/14/19 10:52 Metamyelocytes % 0 % 04/14/19 10:52 Myelocytes % 0 % 04/14/19 10:52 Promyelocytes % 0 % 04/14/19 10:52 Blast Cells % 0 % 04/14/19 10:52 Nucleated RBC % Not Reportable 04/14/19 10:52 Seg Neutrophils # Man 20.7 K/mm3 (1.8-7.7) H 04/14/19 10:52 Band Neutrophils # 0.0 K/mm3 04/14/19 10:52 Lymphocytes # (Manual) 0.4 K/mm3 (1.2-5.4) L 04/14/19 10:52 Abs React Lymphs (Man) 0.0 K/mm3 04/14/19 10:52 Monocytes # (Manual) 0.2 K/mm3 (0.0-0.8) 04/14/19 10:52 Eosinophils # (Manual) 0.0 K/mm3 (0.0-0.4) 04/14/19 10:52 Basophils # (Manual) 0.0 K/mm3 (0.0-0.1) 04/14/19 10:52 Metamyelocytes # 0.0 K/mm3 04/14/19 10:52 Myelocytes # 0.0 K/mm3 04/14/19 10:52 Promyelocytes # 0.0 K/mm3 04/14/19 10:52 Blast Cells # 0.0 K/mm3 04/14/19 10:52 WBC Morphology Not Reportable 04/14/19 10:52 Hypersegmented Neuts Not Reportable 04/14/19 10:52 Hyposegmented Neuts Not Reportable 04/14/19 10:52 Hypogranular Neuts Not Reportable 04/14/19 10:52 Smudge Cells Not Reportable 04/14/19 10:52 Toxic Granulation Not Reportable 04/14/19 10:52 Toxic Vacuolation Not Reportable 04/14/19 10:52 Dohle Bodies Not Reportable 04/14/19 10:52 Pelger-Huet Anomaly Not Reportable 04/14/19 10:52 Ab Rods Not Reportable 04/14/19 10:52 Platelet Estimate Consistent w auto 04/14/19 10:52 Clumped Platelets Not Reportable 04/14/19 10:52 Plt Clumps, EDTA Not Reportable 04/14/19 10:52 Large Platelets Not Reportable 04/14/19 10:52 Giant Platelets Not Reportable 04/14/19 10:52 Platelet Satelliting Not Reportable 04/14/19 10:52 Plt Morphology Comment Not Reportable 04/14/19 10:52 RBC Morphology Not Reportable 04/14/19 10:52 Dimorphic RBCs Not Reportable 04/14/19 10:52 Polychromasia Not Reportable 04/14/19 10:52 Hypochromasia Not Reportable 04/14/19 10:52 Poikilocytosis Not Reportable 04/14/19 10:52 Anisocytosis Few 04/14/19 10:52 Microcytosis Not Reportable 04/14/19 10:52 Macrocytosis Not Reportable 04/14/19 10:52 Spherocytes Not Reportable 04/14/19 10:52 Pappenheimer Bodies Not Reportable 04/14/19 10:52 Sickle Cells Not Reportable 04/14/19 10:52 Target Cells Not Reportable 04/14/19 10:52 Tear Drop Cells Not Reportable 04/14/19 10:52 Ovalocytes Not Reportable 04/14/19 10:52 Helmet Cells Not Reportable 04/14/19 10:52 Varghese-Tiro Bodies Not Reportable 04/14/19 10:52 [place] Rings Not Reportable 04/14/19 10:52 [place] Cells Not Reportable 04/14/19 10:52 Bite Cells Not Reportable 04/14/19 10:52 Crenated Cell Not Reportable 04/14/19 10:52 Elliptocytes Not Reportable 04/14/19 10:52 Acanthocytes (Spur) Not Reportable 04/14/19 10:52 Rouleaux Not Reportable 04/14/19 10:52 Hemoglobin C Crystals Not Reportable 04/14/19 10:52 Schistocytes Not Reportable 04/14/19 10:52 Malaria parasites Not Reportable 04/14/19 10:52 Mg Bodies Not Reportable 04/14/19 10:52 Hem Pathologist Commnt No 04/14/19 10:52 PT 13.9 Sec. (12.2-14.9) 04/14/19 10:52 INR 1.08 (0.87-1.13) 04/14/19 10:52 VBG pH 7.468 (7.320-7.420) H 04/14/19 10:52 Sodium 129 mmol/L (137-145) L 04/14/19 10:52 Potassium 3.4 mmol/L (3.6-5.0) L 04/14/19 10:52 Chloride 92.7 mmol/L (98-107) L 04/14/19 10:52 Carbon Dioxide 17 mmol/L (22-30) L 04/14/19 10:52 Anion Gap 23 mmol/L 04/14/19 10:52 BUN 49 mg/dL (7-17) H 04/14/19 10:52 Creatinine 3.8 mg/dL (0.7-1.2) H 04/14/19 10:52 Estimated GFR 13 ml/min 04/14/19 10:52 BUN/Creatinine Ratio 13 % 04/14/19 10:52 Glucose 156 mg/dL (65-100) H 04/14/19 10:52 Lactic Acid 1.60 mmol/L (0.7-2.0) 04/14/19 14:43 Calcium 8.0 mg/dL (8.4-10.2) L 04/14/19 10:52 Total Bilirubin 0.80 mg/dL (0.1-1.2) 04/14/19 10:52 AST 25 units/L (5-40) 04/14/19 10:52 ALT 22 units/L (7-56) 04/14/19 10:52 Alkaline Phosphatase 74 units/L (35-129) 04/14/19 10:52 Total Protein 7.2 g/dL (6.3-8.2) 04/14/19 10:52 Albumin 3.5 g/dL (3.9-5) L 04/14/19 10:52 Albumin/Globulin Ratio 0.9 % 04/14/19 10:52 Urine Color [place] (Yellow) 04/14/19 12:06 Urine Turbidity Cloudy (Clear) 04/14/19 12:06 Urine pH 5.0 (5.0-7.0) 04/14/19 12:06 Ur Specific [place] 1.015 (1.003-1.030) 04/14/19 12:06 Urine Protein 100 mg/dl mg/dL (Negative) 04/14/19 12:06 Urine Glucose (UA) 50 mg/dL (Negative) 04/14/19 12:06 Urine Ketones Neg mg/dL (Negative) 04/14/19 12:06 Urine Blood Mod (Negative) 04/14/19 12:06 Urine Nitrite Neg (Negative) 04/14/19 12:06 Urine Bilirubin Neg (Negative) 04/14/19 12:06 Urine Urobilinogen 4.0 mg/dL (<2.0) 04/14/19 12:06 Ur Leukocyte Esterase Mod (Negative) 04/14/19 12:06 Urine WBC (Auto) 38.0 /HPF (0.0-6.0) H 04/14/19 12:06 Urine RBC (Auto) 14.0 /HPF (0.0-6.0) 04/14/19 12:06 U Epithel Cells (Auto) 7.0 /HPF (0-13.0) 04/14/19 12:06 Urine Bacteria (Auto) 1+ /HPF (Negative) 04/14/19 12:06 Urine Mucus Few /HPF 04/14/19 12:06 Active Medications - Current Medications Current Medications: Generic Name Dose Route Start Last Admin Trade Name Freq PRN Reason Stop Dose Admin Acetaminophen 650 mg 04/14/19 15:30 04/14/19 19:55 Tylenol PO 650 mg Q4H PRN Administration Pain MILD(1-3)/Fever >100.5/FIGUEROA Doxepin HCl 50 mg 04/14/19 22:00 04/14/19 22:44 Sinequan PO 50 mg HS SANDHYA Administration Gabapentin 800 mg 04/15/19 08:00 04/15/19 08:47 Gabapentin PO 800 mg TID SANDHYA Administration Sodium Chloride 1,000 mls @ 100 mls/hr 04/14/19 16:00 04/15/19 02:02 Nacl 0.9% 1000 Ml IV 04/15/19 16:00 100 mls/hr DIRECT SANDHYA Administration Cefepime HCl 1 gm in 100 mls @ 200 mls/hr 04/15/19 10:00 04/15/19 10:22 Cefepime/Ns 1 Gm/100 Ml IV 200 mls/hr Q24HR SANDHYA Administration Protocol Ondansetron HCl 4 mg 04/14/19 15:30 04/14/19 16:46 Zofran IV 4 mg Q8H PRN Administration Nausea And Vomiting Quetiapine Fumarate 200 mg 04/14/19 22:00 04/14/19 22:44 Seroquel PO 200 mg HS SANDHYA Administration Sodium Chloride 10 ml 04/14/19 22:00 04/15/19 10:22 Sodium Chloride Flush Syringe 10 Ml IV 10 ml BID SANDHYA Administration Sodium Chloride 10 ml 04/14/19 15:30 Sodium Chloride Flush Syringe 10 Ml IV PRN PRN LINE FLUSH
[2019-04-15 12:38] LABS: Calcium 6.7 mg/dL (8.4-10.2)
[2019-04-15] MEDS: ACETAMINOPHEN 325 MG TAB PO PRN ×2 (13:47→21:39)
--- NOTE | 2019-04-15 13:58 | Consultation ---
History of Present Illness Consult date: 04/15/19 Chief complaint: feeling unwell - History of present illness History of present illness: 44 yo F with hx of chronic lower back pain presented to the ER c/o not feeling well for 3 days. She has been having fevers, dysuria, and swelling in her left axilla. Patient states she has had swelling in her axilla many times. She has had procedures performed for this at the [facility]. She states it was investigated with biopsy and mammogram. She states that they have been infected lymph nodes and were removed. She has had this done 2 times on the left and once on the right. She denies drainage from the area. Past History Past Medical History: other (chronic lower back pain) Past Surgical History: Other (excision of infected lymph node of left and right axilla) Social history: no significant social history Family history: no significant family history Medications and Allergies Allergies Allergy/AdvReac Type Severity Reaction Status Date / Time No Known Allergies Allergy Unverified 04/14/19 10:45 Home Medications Medication Instructions Recorded Confirmed Last Taken Type Doxepin [SINEquan] 50 mg PO HS 04/14/19 04/14/19 04/10/19 History Gabapentin [Neurontin] 800 mg PO TID 04/14/19 04/14/19 Unknown History Ibuprofen [Motrin 800 MG tab] 800 mg PO TID PRN 04/14/19 04/14/19 Unknown History Quetiapine Fumarate [SEROquel] 200 mg PO QHS 04/14/19 04/14/19 Unknown History Active Meds: Active Medications Acetaminophen (Tylenol) 650 mg PO Q4H PRN PRN Reason: Pain MILD(1-3)/Fever >100.5/FIGUEROA Last Admin: 04/15/19 13:47 Dose: 650 mg Documented by: Doxepin HCl (Sinequan) 50 mg PO HS [facility] Last Admin: 04/14/19 22:44 Dose: 50 mg Documented by: Gabapentin (Gabapentin) 800 mg PO TID SANDHYA Last Admin: 04/15/19 13:48 Dose: 800 mg Documented by: Sodium Chloride (Nacl 0.9% 1000 Ml) 1,000 mls @ 100 mls/hr IV DIRECT SANDHYA Stop: 04/15/19 16:00 Last Admin: 04/15/19 13:48 Dose: 100 mls/hr Documented by: Cefepime HCl (Cefepime/Ns 1 Gm/100 Ml) 1 gm in 100 mls @ 200 mls/hr IV Q24HR [facility]; Protocol Last Admin: 04/15/19 10:22 Dose: 200 mls/hr Documented by: Ondansetron HCl (Zofran) 4 mg IV Q8H PRN PRN Reason: Nausea And Vomiting Last Admin: 04/14/19 16:46 Dose: 4 mg Documented by: Quetiapine Fumarate (Seroquel) 200 mg PO HS [facility] Last Admin: 04/14/19 22:44 Dose: 200 mg Documented by: Sodium Chloride (Sodium Chloride Flush Syringe 10 Ml) 10 ml IV BID SANDHYA Last Admin: 04/15/19 10:22 Dose: 10 ml Documented by: Sodium Chloride (Sodium Chloride Flush Syringe 10 Ml) 10 ml IV PRN PRN PRN Reason: LINE FLUSH Review of Systems All systems: negative (10 pt ROS performed and negative except for that listed in HPI) Exam Vital Signs Temp Pulse Resp BP Pulse Ox 101.7 F H 148 H 20 108/66 98 04/14/19 10:53 04/14/19 10:53 04/14/19 10:53 04/14/19 10:53 04/14/19 10:53 Narrative exam: Gen: AAOx3. NAD ENT: no scleral icterus or conjunctival pallor CV: s1, S2+ resp: even and unlabored Abd: soft Ext: no c/c/e. L axillary swelling, TTP without erythema. Several firm and tender lymph nodes palpated. No obvious abscess. R axilla without swelling, LAD, or pain. Surgical scars in b/l axilla Results - Labs 04/14/19 10:52 04/15/19 11:39 Abnormal lab results 04/14/19 04/15/19 Range/Units 14:01 11:39 Potassium 3.3 L (3.6-5.0) mmol/L Carbon Dioxide 16 L (22-30) mmol/L BUN 46 H (7-17) mg/dL Creatinine 2.2 H (0.7-1.2) mg/dL Glucose 120 H (65-100) mg/dL Lactic Acid 2.20 H* (0.7-2.0) mmol/L Calcium 6.7 L D (8.4-10.2) mg/dL Diabetes panel 04/15/19 Range/Units 11:39 Sodium 138 D (137-145) mmol/L Potassium 3.3 L (3.6-5.0) mmol/L Chloride 106.8 (98-107) mmol/L Carbon Dioxide 16 L (22-30) mmol/L BUN 46 H (7-17) mg/dL Creatinine 2.2 H (0.7-1.2) mg/dL Glucose 120 H (65-100) mg/dL Calcium 6.7 L D (8.4-10.2) mg/dL Calcium panel 04/15/19 Range/Units 11:39 Calcium 6.7 L D (8.4-10.2) mg/dL Pituitary panel 04/15/19 Range/Units 11:39 Sodium 138 D (137-145) mmol/L Potassium 3.3 L (3.6-5.0) mmol/L Chloride 106.8 (98-107) mmol/L Carbon Dioxide 16 L (22-30) mmol/L BUN 46 H (7-17) mg/dL Creatinine 2.2 H (0.7-1.2) mg/dL Glucose 120 H (65-100) mg/dL Calcium 6.7 L D (8.4-10.2) mg/dL Adrenal panel 04/15/19 Range/Units 11:39 Sodium 138 D (137-145) mmol/L Potassium 3.3 L (3.6-5.0) mmol/L Chloride 106.8 (98-107) mmol/L Carbon Dioxide 16 L (22-30) mmol/L BUN 46 H (7-17) mg/dL Creatinine 2.2 H (0.7-1.2) mg/dL Glucose 120 H (65-100) mg/dL Calcium 6.7 L D (8.4-10.2) mg/dL - Imaging CT scan - abdomen: report reviewed, image reviewed CT scan - pelvis: report reviewed, image reviewed Assessment and Plan 44 yo F with 1. sepsis 2. UTI and possible pyelonephritis 3. HARDIK 4. left axilla pain and swelling Plan: 1. continue broad spectrum abx 2. cultures pending 3. warm compresses to left axilla 4. obtain u/s of left axilla to determine if there are any drainable fluid collections. I suspect lymphadenopathy. 5. no general surgery intervention at this time 6. nephro consult pending Thank you, please call with questions
--- NOTE | 2019-04-15 14:11 | Consultation ---
History of Present Illness - Reason for Consult Consult date: 04/15/19 acute renal failure, hypokalemia - History of Present Illness the patient is a 44 YO female with history significant for chronic lower back pain, PTSD and Marijuana use who presented to [facility] ER on 04/14 c/o persistent N & V of 3 days duration. She has ahd several episodes of non-bloody emesis and associated with decreased appetite, poor PO intake, decreased UOP, fever and one episode of diarrhea. She also reports left axillary swelling for the month worse for the past few days. Patient states that she has had swelling in her L axilla in the past and had procedures performed for this at the [facility]. No drainage from the swelling. Patient has been taking Ibuprofen on a daily basis. Patient denies any h/o abd pain, hematuria, cp, sob, cough, leg swelling, dizziness or syncope. Current BP is 99/57. On admission her labs are significant for Sodium 129, BUN 49, Creat 3.8 and bicarb 17. Nephrology was consulted for further evaluation. Past History Past Medical History: other (See HPI.) Medications and Allergies Allergies Allergy/AdvReac Type Severity Reaction Status Date / Time No Known Allergies Allergy Unverified 04/14/19 10:45 Home Medications Medication Instructions Recorded Confirmed Last Taken Type Doxepin [SINEquan] 50 mg PO HS 04/14/19 04/14/19 04/10/19 History Gabapentin [Neurontin] 800 mg PO TID 04/14/19 04/14/19 Unknown History Ibuprofen [Motrin 800 MG tab] 800 mg PO TID PRN 04/14/19 04/14/19 Unknown History Quetiapine Fumarate [SEROquel] 200 mg PO QHS 04/14/19 04/14/19 Unknown History Active Meds: Active Medications Acetaminophen (Tylenol) 650 mg PO Q4H PRN PRN Reason: Pain MILD(1-3)/Fever >100.5/FIGUEROA Last Admin: 04/15/19 13:47 Dose: 650 mg Documented by: Doxepin HCl (Sinequan) 50 mg PO HS [facility] Last Admin: 04/14/19 22:44 Dose: 50 mg Documented by: Gabapentin (Gabapentin) 800 mg PO TID [facility] Last Admin: 04/15/19 13:48 Dose: 800 mg Documented by: Sodium Chloride (Nacl 0.9% 1000 Ml) 1,000 mls @ 100 mls/hr IV DIRECT SANDHYA Stop: 04/15/19 16:00 Last Admin: 04/15/19 13:48 Dose: 100 mls/hr Documented by: Cefepime HCl (Cefepime/Ns 1 Gm/100 Ml) 1 gm in 100 mls @ 200 mls/hr IV Q24HR [facility]; Protocol Last Admin: 04/15/19 10:22 Dose: 200 mls/hr Documented by: Ondansetron HCl (Zofran) 4 mg IV Q8H PRN PRN Reason: Nausea And Vomiting Last Admin: 04/14/19 16:46 Dose: 4 mg Documented by: Quetiapine Fumarate (Seroquel) 200 mg PO HS [facility] Last Admin: 04/14/19 22:44 Dose: 200 mg Documented by: Sodium Chloride (Sodium Chloride Flush Syringe 10 Ml) 10 ml IV BID [facility] Last Admin: 04/15/19 10:22 Dose: 10 ml Documented by: Sodium Chloride (Sodium Chloride Flush Syringe 10 Ml) 10 ml IV PRN PRN PRN Reason: LINE FLUSH Review of Systems Constitutional: fever, anorexia, fatigue, weakness, poor appetite, no weight loss, no weight gain, no chills, no sweats Breasts: deferred Cardiovascular: no chest pain, no orthopnea, no edema, no syncope, no lightheadedness, no shortness of breath, no dyspnea on exertion, no high blood pressure, no leg edema Respiratory: no cough, no hemoptysis, no shortness of breath, no sleep apnea, no home oxygen Gastrointestinal: nausea, vomiting, diarrhea, no abdominal pain, no melena, no hematochezia Genitourinary Female: dysuria, no hematuria Rectal: no bleeding Musculoskeletal: low back pain, no muscle cramps Integumentary: lesions (L axilla), no rash Neurological: no paralysis, no weakness, no seizures, no syncope, no convulsions, no aphasia, no change in speech, no change in mentation, no co nfusion, no memory loss Psychiatric: other (PTSD), no memory loss Exam - Vital Signs Vital signs: Vital Signs Temp Pulse Resp BP Pulse Ox 101.7 F H 148 H 20 108/66 98 04/14/19 10:53 04/14/19 10:53 04/14/19 10:53 04/14/19 10:53 04/14/19 10:53 - General Appearance General appearance: well-developed, appears stated age, other (no distress) EENT: ATNC, PERRL, mucous membranes moist, hearing intact, vision intact Neck: Present: neck supple, trachea midline Respiratory: Clear to Ascultation Heart: regular, S1S2, no murmurs Gastrointestinal: Present: normoactive bowel sounds. Absent: tenderness, distended Integumentary: other (L axillary swelling) Neurologic: no focal deficit, no asterixis, alert and oriented x3 Musculoskeletal: Present: other (no edema) Psychiatric: cooperative Results - Lab Results 04/14/19 10:52 04/15/19 11:39 Most recent lab results Calcium 6.7 mg/dL (8.4-10.2) L D 04/15/19 11:39 Assessment and Plan 1. Acute kidney injury: Vasomotor HARDIK in the setting of volume depletion and hypotension. Urine studies ordered. CT abdomen was negative for hydro. Continue IV fluids. Renal function is improving. Monitor renal function. Renal prognosis is guarded. Avoid nephrotoxic agents. Meds dosage based on GFR. 2. FEN: Hyponatremia, 2/2 volume depletion. Sodium level is improving. Monitor Sodium level. Hypokalemia, replete K. Metabolic acidosis, continue IV fluids. Monitor lytes. 3. Severe Sepsis (POA): On Cefepime and Vancomycin. Cultures pending. 4. Suspected pyelonephritis: Continue Abx. Urine culture pending. 5. L axillary cellulitis: POA. 6. PTSD.
--- NOTE | 2019-04-15 15:34 | Consultation ---
History of Present Illness - Reason for Consult Consult date: 04/15/19 Sepsis Requesting physician: NEIL MAS - History of Present Illness The patient is a 44/F with h/o back pain, previous left axillary wound infection that apparently developed after she underwent a mammogram and was noted to have a lump that needed a biopsy (per patient it turned out to be dense fibrotic tissue) came in to the ER yesterday with complaints of not feeling well and fever. She also felt that she was urinating less. Denies any urinary burning as such. She also reports left axillary region developed another lump 2 weeks ago and became very painful over the last 1 week. She also complains of b/l flank pain and body pain. She had a fever of 103.2F on admission. Review of Systems: General: + fever and chills HEENT: no new visual disturbance Respiratory: No cough, sputum, hemoptysis or shortness of breath Cardiovascular: No chest pain, syncope Gastrointestinal: + nausea and vomiting, no diarrhea as such Genitourinary: No dysuria or hematuria Musculoskeletal: + bilateral flank pain Neurologic: No headaches, seizures Hematologic: No easy bruising or bleeding Endocrine: No night sweats or acute weight loss Skin: negative for rash, jaundice Psychiatric: No suicidal or homicidal ideation Past History Past Medical History: other (See HPI.) Past Surgical History: Other (excision of infected lymph node of left and right axilla) Social history: no significant social history Family history: no significant family history Medications and Allergies Allergies Allergy/AdvReac Type Severity Reaction Status Date / Time No Known Allergies Allergy Unverified 04/14/19 10:45 Home Medications Medication Instructions Recorded Confirmed Last Taken Type Doxepin [SINEquan] 50 mg PO HS 04/14/19 04/14/19 04/10/19 History Gabapentin [Neurontin] 800 mg PO TID 04/14/19 04/14/19 Unknown History Ibuprofen [Motrin 800 MG tab] 800 mg PO TID PRN 04/14/19 04/14/19 Unknown History Quetiapine Fumarate [SEROquel] 200 mg PO QHS 04/14/19 04/14/19 Unknown History Active Meds: Active Medications Acetaminophen (Tylenol) 650 mg PO Q4H PRN PRN Reason: Pain MILD(1-3)/Fever >100.5/FIGUEROA Last Admin: 04/15/19 13:47 Dose: 650 mg Documented by: Doxepin HCl (Sinequan) 50 mg PO HS [facility] Last Admin: 04/14/19 22:44 Dose: 50 mg Documented by: Gabapentin (Gabapentin) 800 mg PO TID [facility] Last Admin: 04/15/19 13:48 Dose: 800 mg Documented by: Sodium Chloride (Nacl 0.9% 1000 Ml) 1,000 mls @ 100 mls/hr IV DIRECT SANDHYA Stop: 04/15/19 16:00 Last Admin: 04/15/19 13:48 Dose: 100 mls/hr Documented by: Cefepime HCl (Cefepime/Ns 2 Gm/100 Ml) 2 gm in 100 mls @ 200 mls/hr IV Q12HR [facility] Ondansetron HCl (Zofran) 4 mg IV Q8H PRN PRN Reason: Nausea And Vomiting Last Admin: 04/14/19 16:46 Dose: 4 mg Documented by: Potassium Chloride (K-Dur) 40 meq PO ONCE ONE Stop: 04/15/19 15:15 Quetiapine Fumarate (Seroquel) [address] [facility] Last Admin: 04/14/19 22:44 Dose: 200 mg Documented by: Sodium Chloride (Sodium Chloride Flush Syringe 10 Ml) 10 ml IV BID [facility] Last Admin: 04/15/19 10:22 Dose: 10 ml Documented by: Sodium Chloride (Sodium Chloride Flush Syringe 10 Ml) 10 ml IV PRN PRN PRN Reason: LINE FLUSH Physical Examination - Physical Exam Narrative exam: Physical Exam: Constitutional: Alert, cooperative. No acute distress Head, Ears, Nose: Normocephalic, atraumatic. External ears, nose normal Eyes: Conjunctivae/corneas clear. No icterus. No ptosis. Neck: Supple, no meningeal signs Oral: dentition fair, no thrush Cardiovascular: S1, S2 normal. Respiratory: Good air entry, clear to auscultation bilaterally GI: Soft, non-tender; bowel sounds normal. No peritoneal signs Musculoskeletal: severe b/l flank pain. Skin: No rash or abscess Hem/Lymphatic: left axillary lump with severe tenderness. No lymphangitis Psych: Mood ok. Affect normal Neurological: Awake, alert, oriented. No gross abnormality - Constitutional Vitals: Vital Signs Temp Pulse Resp BP Pulse Ox 98.9 F 117 H 22 99/57 99 11/12/19 11:47 04/15/19 11:47 04/15/19 13:47 04/15/19 11:47 04/15/19 11:47 Temperature -Last 24 Hours Temperature 98.9 F Temperature 98.0 F Temperature 100.7 F Temperature 99.3 F Temperature 100.4 F Results - Labs CBC & Chem 7: 04/14/19 10:52 04/15/19 11:39 Labs: Abnormal lab results 04/15/19 Range/Units 11:39 Potassium 3.3 L (3.6-5.0) mmol/L Carbon Dioxide 16 L (22-30) mmol/L BUN 46 H (7-17) mg/dL Creatinine 2.2 H (0.7-1.2) mg/dL Glucose 120 H (65-100) mg/dL Calcium 6.7 L D (8.4-10.2) mg/dL - Imaging and Cardiology Chest x-ray: report reviewed, image reviewed (Chest x-ray shows no pneumonia) CT scan - abdomen: report reviewed, image reviewed (CT abdomen pelvis without contrast suggestive of possible bilateral pyelonephritis) Assessment and Plan Cultures: 04/14/2019 blood culture: No growth thus far 04/14/2019 urine culture: No growth thus far A/P: 44/F with h/o back pain, previous left axillary wound infection that apparently developed after she underwent a mammogram and was noted to have a lump that needed a biopsy (per patient it turned out to be dense fibrotic tissue) admitted with: 1) Severe sepsis: Source is likely bilateral pyelonephritis and urinary tract infection, also possibly left axillary lump v/s abscess. She has severe b/l flank tenderness, UA with pyuria. 2) Left axillary lump v/s abscess: very tender on exam. Seen by general surgery, planned for ultrasound. 3) Acute renal failure: renally dose antibiotics. Recs: Follow-up blood and urine cultures Continue empiric cefepime and vancomycin renally adjusted and monitor response Follow-up left axillary ultrasound Prasanna Ch MD, FACP [facility] ([facility] C: [phone] O: [phone] F: [phone]
[2019-04-15] MEDS ORDERED: POTASSIUM CHLORIDE ER 20 MEQ TAB PO ONE (16:14)
[2019-04-15 17:56] LABS: Creatinine,Urine 140.2 mg/dL (0.1-20.0)
[2019-04-15] MEDS: CEFEPIME/NS 2 GM/100 ML 2 GM/100 ML BAG IV SCH (21:38)
[2019-04-15] MEDS: DOXEPIN 25 MG CAP PO SCH (21:39)
[2019-04-15] MEDS: QUEtiapine 200 MG TAB PO SCH (21:40)
[2019-04-15] MEDS ORDERED: SODIUM CHLORIDE 0.9% 250ML 250 ML IV ONE (22:52)
[2019-04-16 06:02] LABS: Calcium 6.6 mg/dL (8.4-10.2)
--- NOTE | 2019-04-16 07:50 | Ultrasound Report ---
ULTRASOUND EXTREMITY NONVASCULAR LEFT HISTORY: Left axillary swelling, possible lymphadenopathy versus abscess, fever for 3 days, left axil johnathan mass for one month. COMPARISON: None. FINDINGS: Targeted grayscale ultrasound with color Doppler interrogation was performed in the left axillary reg ion at the site of a palpable mass. The images demonstrate a 5.0 x 1.4 x 5.0 cm hypoechoic masslike l esion with mild internal cystic changes. This lesion is reniform in shape and resembles a lymph node but no normal lymph node architecture is identified. There is mild posterior acoustic enhancement and no internal perfusion on color Doppler interrogation. The surrounding subcutaneous tissues are unrem arkable. IMPRESSION: 5.0 x 1.4 x 5.0 cm hypoechoic masslike lesion which is most consistent with a small subcutaneous absc ess. Please note this lesion is reniform in shape but does not demonstrate normal lymph node architec ture. I suppose a necrotic lymph node could also be considered. I would suspect a necrotic lymph node is less likely secondary to no apparent internal perfusion on color Doppler interrogation. If furthe r evaluation is needed CT with contrast should provide the most information. Signer Name: Bolivar Griffin Jr, MD Signed: 04/16/2019 7:46 AM Workstation Name: [id number]
[2019-04-16] MEDS ORDERED: NYSTATIN 500,000 UNIT/5 ML ORAL LIQD PO SCH (08:00)
[2019-04-16] MEDS: GABAPENTIN 400 MG CAP PO SCH ×4 (11:39→20:55)
[2019-04-16] MEDS: NYSTATIN 500,000 UNIT/5 ML ORAL LIQD PO SCH ×4 (11:39→20:56)
[2019-04-16] MEDS: VANCOMYCIN/NS 1 GM/250 ML 1 GM/250 ML BAG IV SCH (11:40)
[2019-04-16] MEDS: SODIUM CHLORIDE 0.9% 1000 ML 1,000 ML IV SCH (11:43)
--- NOTE | 2019-04-16 11:46 | Progress Note ---
Assessment and Plan Cultures: 04/14/2019 blood culture: No growth thus far 04/14/2019 urine culture: skin bouchra A/P: 44/F with h/o back pain, previous left axillary wound infection that apparently developed after she underwent a mammogram and was noted to have a lump that needed a biopsy (per patient it turned out to be dense fibrotic tissue) admitted with: 1) Severe sepsis: Source: bilateral pyelonephritis / urinary tract infection v/s left axillary abscess. She has severe b/l flank tenderness, UA with pyuria. Continues on broad spectrum abx. 2) Left axillary lump v/s abscess: very tender on exam. Ultrasound suggestive of possible abscess. 3) Acute renal failure: renally dose antibiotics. Recs: Continue empiric cefepime and vancomycin renally adjusted and monitor response Awaiting gen surgery recs, if she undergoes exploration/drainage of left axilla, would recommend sending sample for histopath and for bacterial, AFB and fungal cultures recheck CBC in AM (ordered) Prasanna Ch MD, FACP [facility] ([facility] C: [phone] O: [phone] F: [phone] Subjective Date of service: 04/16/19 Interval history: Febrile last night but feeling better today. She states her pain is much improved. Breathing better. Left axilla still painful. US suggestive of possible abscess. Objective - Exam Narrative Exam: Physical Exam: Constitutional: Alert, cooperative. No acute distress Head, Ears, Nose: Normocephalic, atraumatic. External ears, nose normal Eyes: Conjunctivae/corneas clear. No icterus. No ptosis. Neck: Supple, no meningeal signs Oral: dentition fair, no thrush Cardiovascular: S1, S2 normal. Respiratory: Good air entry, clear to auscultation bilaterally GI: Soft, non-tender; bowel sounds normal. No peritoneal signs Musculoskeletal: no pedal edema. No CVA tenderness Skin: No rash or abscess Hem/Lymphatic: left axillary lump with severe tenderness. No lymphangitis Psych: Mood ok. Affect normal Neurological: Awake, alert, oriented. No gross abnormality - Constitutional Vitals: Vital Signs Temp Pulse Resp BP Pulse Ox 98.8 F 110 H 18 87/45 96 04/16/19 05:18 04/16/19 05:18 04/16/19 05:18 04/16/19 05:18 04/16/19 05:18 Temperature -Last 24 Hours Temperature 98.8 F Temperature 99.0 F Temperature 101.9 F Temperature 102.0 F Temperature 100.9 F Temperature 98.9 F - Labs CBC & Chem 7: 04/14/19 10:52 04/16/19 05:07 Labs: Abnormal lab results 04/15/19 04/15/19 04/16/19 Range/Units 11:39 Unknown 05:07 Sodium 136 L (137-145) mmol/L Potassium 3.3 L 3.5 L (3.6-5.0) mmol/L Chloride 109.3 H (98-107) mmol/L Carbon Dioxide 16 L 15 L (22-30) mmol/L BUN 46 H 47 H (7-17) mg/dL Creatinine 2.2 H 2.1 H (0.7-1.2) mg/dL Glucose 120 H 130 H (65-100) mg/dL Calcium 6.7 L D 6.6 L (8.4-10.2) mg/dL Urine Creatinine 140.2 H (0.1-20.0) mg/dL
--- NOTE | 2019-04-16 12:00 | Progress Note ---
Assessment and Plan 1. Acute kidney injury: Vasomotor HARDIK in the setting of volume depletion and hypotension. CT abdomen was negative for hydro. Continue IV fluids. Renal function is improving. Monitor renal function. Renal prognosis is guarded. Avoid nephrotoxic agents. Meds dosage based on GFR. 2. FEN: Hyponatremia, 2/2 volume depletion. Sodium level is better. Hypokalemia, replete K. Metabolic acidosis, continue IV fluids. Replete Mg. Monitor lytes. 3. Severe Sepsis (POA): On Cefepime and Vancomycin. Cultures pending. 4. Suspected pyelonephritis: Continue Abx. 5. L axillary cellulitis: POA. 6. PTSD. Examination: General appearance: well-developed, appears stated age, no distress HEENT: ATNC, ELLE, mucous membranes moist, hearing intact, vision intact Neck: neck supple, trachea midline Respiratory: Clear to Ascultation Heart: regular, S1S2, no murmur Gastrointestinal: normoactive bowel sounds, not tender, not distended Integumentary: L axillary swelling Neurologic: no focal deficit, no asterixis, alert and oriented x3 Ext: no edema Psychiatric: cooperative Subjective Date of service: 04/16/19 Interval history: Patient was seen and examined at the bedside. Doing ok. Objective - Vital Signs Vital signs: Vital Signs - 12hr 04/16/19 04/16/19 02:58 05:18 Temperature 99.0 F 98.8 F Pulse Rate 116 H 110 H Respiratory 18 18 Rate Blood Pressure 91/45 87/45 O2 Sat by Pulse 96 96 Oximetry - Lab 04/16/19 13:18 04/16/19 13:18 Most recent lab results Calcium 6.6 mg/dL (8.4-10.2) L 04/16/19 05:07 Phosphorus 2.70 mg/dL (2.5-4.5) 04/16/19 05:07 Urine Creatinine 140.2 mg/dL (0.1-20.0) H 04/15/19 Unknown Urine Sodium 21 mmol/L 04/15/19 Unknown Medications & Allergies - Medications Allergies/Adverse Reactions: Allergies No Known Allergies Allergy (Unverified 04/14/19 10:45) Home Medications: Home Medications Medication Instructions Recorded Confirmed Last Taken Type Doxepin [SINEquan] 50 mg PO HS 04/14/19 04/14/1904/10/19 History Gabapentin [Neurontin] 800 mg PO TID 04/14/19 04/14/19 Unknown History Ibuprofen [Motrin 800 MG tab] 800 mg PO TID PRN 04/14/19 04/14/19 Unknown History Quetiapine Fumarate [SEROquel] 200 mg PO QHS 04/14/19 04/14/19 Unknown History Active Medications: Generic Name Dose Route Start Last Admin Trade Name Freq PRN Reason Stop Dose Admin Acetaminophen 650 mg 04/14/19 15:30 04/15/19 21:39 Tylenol PO 650 mg Q4H PRN Administration Pain MILD(1-3)/Fever >100.5/FIGUEROA Doxepin HCl 50 mg 04/14/19 22:00 04/15/19 21:39 Sinequan PO 50 mg HS SANDHYA Administration Gabapentin 800 mg 04/15/19 08:00 04/16/19 11:39 Gabapentin PO 800 mg TID SANDHYA Administration Cefepime HCl 2 gm in 100 mls @ 200 mls/hr 04/15/19 22:00 04/15/19 21:38 Cefepime/Ns 2 Gm/100 Ml IV 200 mls/hr Q12HR SANDHYA Administration Sodium Chloride 1,000 mls @ 75 mls/hr 04/15/19 23:00 04/16/19 11:43 Nacl 0.9% 1000 Ml IV 75 mls/hr DIRECT SANDHYA Administration Vancomycin HCl 1 gm in 250 mls @ 167.007 mls/hr 04/16/19 12:00 04/16/19 11:40 Vancomycin/Ns 1 Gm/250 Ml IV 167.007 mls/hr Q24H SANDHYA Administration Nystatin 100,000 unit 04/15/19 23:22 04/16/19 11:39 Nystatin PO 100,000 unit TID SANDHYA Administration Ondansetron HCl 4 mg 04/14/19 15:30 04/14/19 16:46 Zofran IV 4 mg Q8H PRN Administration Nausea And Vomiting Quetiapine Fumarate 200 mg 04/14/19 22:00 04/15/19 21:40 Seroquel PO 200 mg HS SANDHYA Administration Sodium Chloride 10 ml 04/14/19 22:00 04/16/19 11:40 Sodium Chloride Flush Syringe 10 Ml IV 10 ml BID SANDHYA Administration Sodium Chloride 10 ml 04/14/19 15:30 Sodium Chloride Flush Syringe 10 Ml IV PRN PRN LINE FLUSH
--- NOTE | 2019-04-16 13:04 | Progress Note ---
Assessment and Plan Assessment and plan: Chest pain. Check cardiac isoenzymes and EKG. Check d-dimer Chest pain protocol. Sepsis patient has high Lactic acid and Leukocytosis UTI and abscess may be the source of infection. Abd CT revealed both kidneys were enlarged and appeared edematous with possibility of pyelonephritis and/or nephritis. No hydronephrosis. Right nephrolithiasis without obstruction.. Patient initiated on IV Cefepime and IV Vancomycin. pressors if nicessary. HARDIK (acute kidney injury) IV fluids for now Nephrology consulted ATN is a high possibility Hyponatremia Follow-up BMP IV NS for now. Hypokalemia Supplemented Left axillary Abscess Surgery consulted Pyelonephritis/UTI (urinary tract infection) CT results noted as above On Cefepime pending culture DVT prophylaxis History Interval history: No New issues overnight Hospitalist Physical - Constitutional Vitals: Temp Pulse Resp BP Pulse Ox 99.6 F 120 H 24 116/73 99 04/16/19 11:42 04/16/19 11:42 04/16/19 11:42 04/16/19 11:42 04/16/19 11:42 General appearance: Present: no acute distress, well-nourished - EENT Eyes: Present: PERRL, EOM intact ENT: hearing intact, clear oral mucosa, dentition normal - Neck Neck: Present: supple, normal ROM - Respiratory Respiratory effort: normal Respiratory: bilateral: CTA - Cardiovascular Rhythm: regular Heart Sounds: Present: S1 & S2. Absent: gallop, rub - Extremities Extremities: no ischemia, No edema, Full ROM - Abdominal General gastrointestinal: soft, non-tender, non-distended, normal bowel sounds - Integumentary Integumentary: Present: clear, warm, dry - Neurologic Neurologic: CNII-XII intact, moves all extremities Results - Labs CBC & Chem 7: 04/14/19 10:52 04/16/19 05:07 Labs: Laboratory Last Values WBC 21.3 K/mm3 (4.5-11.0) H 04/14/19 10:52 RBC 4.83 M/mm3 (3.65-5.03) 04/14/19 10:52 Hgb 12.9 gm/dl (10.1-14.3) 04/14/19 10:52 Hct 39.3 % (30.3-42.9) 04/14/19 10:52 MCV 81 fl (79-97) 04/14/19 10:52 MCH 27 pg (28-32) L 04/14/19 10:52 MCHC 33 % (30-34) 04/14/19 10:52 RDW 14.3 % (13.2-15.2) 04/14/19 10:52 Plt Count 134 K/mm3 (140-440) L 04/14/19 10:52 Add Manual Diff Complete 04/14/19 10:52 Total Counted 100 04/14/19 10:52 Seg Neutrophils % Hand Mold Maker 04/14/19 10:52 Seg Neuts % (Manual) 97.0 % (40.0-70.0) H 04/14/19 10:52 Band Neutrophils % 0 % 04/14/19 10:52 Lymphocytes % (Manual) 2.0 % (13.4-35.0) L 04/14/19 10:52 Reactive Lymphs % (Man) 0 % 04/14/19 10:52 Monocytes % (Manual) 1.0 % (0.0-7.3) 04/14/19 10:52 Eosinophils % (Manual) 0 % (0.0-4.3) 04/14/19 10:52 Basophils % (Manual) 0 % (0.0-1.8) 04/14/19 10:52 Metamyelocytes % 0 % 04/14/19 10:52 Myelocytes % 0 % 04/14/19 10:52 Promyelocytes % 0 % 04/14/19 10:52 Blast Cells % 0 % 04/14/19 10:52 Nucleated RBC % Not Reportable 04/14/19 10:52 Seg Neutrophils # Man 20.7 K/mm3 (1.8-7.7) H 04/14/19 10:52 Band Neutrophils # 0.0 K/mm3 04/14/19 10:52 Lymphocytes # (Manual) 0.4 K/mm3 (1.2-5.4) L 04/14/19 10:52 Abs React Lymphs (Man) 0.0 K/mm3 04/14/19 10:52 Monocytes # (Manual) 0.2 K/mm3 (0.0-0.8) 04/14/19 10:52 Eosinophils # (Manual) 0.0 K/mm3 (0.0-0.4) 04/14/19 10:52 Basophils # (Manual) 0.0 K/mm3 (0.0-0.1) 04/14/19 10:52 Metamyelocytes # 0.0 K/mm3 04/14/19 10:52 Myelocytes # 0.0 K/mm3 04/14/19 10:52 Promyelocytes # 0.0 K/mm3 04/14/19 10:52 Blast Cells # 0.0 K/mm3 04/14/19 10:52 WBC Morphology Not Reportable 04/14/19 10:52 Hypersegmented Neuts Not Reportable 04/14/19 10:52 Hyposegmented Neuts Not Reportable 04/14/19 10:52 Hypogranular Neuts Not Reportable 04/14/19 10:52 Smudge Cells Not Reportable 04/14/19 10:52 Toxic Granulation Not Reportable 04/14/19 10:52 Toxic Vacuolation Not Reportable 04/14/19 10:52 Dohle Bodies Not Reportable 04/14/19 10:52 Pelger-Huet Anomaly Not Reportable 04/14/19 10:52 Ab Rods Not Reportable 04/14/19 10:52 Platelet Estimate Consistent w auto 04/14/19 10:52 Clumped Platelets Not Reportable 04/14/19 10:52 Plt Clumps, EDTA Not Reportable 04/14/19 10:52 Large Platelets Not Reportable 04/14/19 10:52 Giant Platelets Not Reportable 04/14/19 10:52 Platelet Satelliting Not Reportable 04/14/19 10:52 Plt Morphology Comment Not Reportable 04/14/19 10:52 RBC Morphology Not Reportable 04/14/19 10:52 Dimorphic RBCs Not Reportable 04/14/19 10:52 Polychromasia Not Reportable 04/14/19 10:52 Hypochromasia Not Reportable 04/14/19 10:52 Poikilocytosis Not Reportable 04/14/19 10:52 Anisocytosis Few 04/14/19 10:52 Microcytosis Not Reportable 04/14/19 10:52 Macrocytosis Not Reportable 04/14/19 10:52 Spherocytes Not Reportable 04/14/19 10:52 Pappenheimer Bodies Not Reportable 04/14/19 10:52 Sickle Cells Not Reportable 04/14/19 10:52 Target Cells Not Reportable 04/14/19 10:52 Tear Drop Cells Not Reportable 04/14/19 10:52 Ovalocytes Not Reportable 04/14/19 10:52 Helmet Cells Not Reportable 04/14/19 10:52 Varghese-Hornick Bodies Not Reportable 04/14/19 10:52 [place] Rings Not Reportable 04/14/19 10:52 Fly Cells Not Reportable 04/14/19 10:52 Bite Cells Not Reportable 04/14/19 10:52 Crenated Cell Not Reportable 04/14/19 10:52 Elliptocytes Not Reportable 04/14/19 10:52 Acanthocytes (Spur) Not Reportable 04/14/19 10:52 Rouleaux Not Reportable 04/14/19 10:52 Hemoglobin C Crystals Not Reportable 04/14/19 10:52 Schistocytes Not Reportable 04/14/19 10:52 Malaria parasites Not Reportable 04/14/19 10:52 Mg Bodies Not Reportable 04/14/19 10:52 Hem Pathologist Commnt No 04/14/19 10:52 PT 13.9 Sec. (12.2-14.9) 04/14/19 10:52 INR 1.08 (0.87-1.13) 04/14/19 10:52 VBG pH 7.468 (7.320-7.420) H 04/14/19 10:52 Sodium 136 mmol/L (137-145) L 04/16/19 05:07 Potassium 3.5 mmol/L (3.6-5.0) L 04/16/19 05:07 Chloride 109.3 mmol/L (98-107) H 04/16/19 05:07 Carbon Dioxide 15 mmol/L (22-30) L 04/16/19 05:07 Anion Gap 15 mmol/L 04/16/19 05:07 BUN 47 mg/dL (7-17) H 04/16/19 05:07 Creatinine 2.1 mg/dL (0.7-1.2) H 04/16/19 05:07 Estimated GFR 31 ml/min 04/16/19 05:07 BUN/Creatinine Ratio 22 % 04/16/19 05:07 Glucose 130 mg/dL (65-100) H 04/16/19 05:07 Lactic Acid 1.60 mmol/L (0.7-2.0) 04/14/19 14:43 Calcium 6.6 mg/dL (8.4-10.2) L 04/16/19 05:07 Phosphorus 2.70 mg/dL (2.5-4.5) 04/16/19 05:07 Magnesium 1.50 mg/dL (1.7-2.3) L 04/16/19 05:07 Total Bilirubin 0.80 mg/dL (0.1-1.2) 04/14/19 10:52 AST 25 units/L (5-40) 04/14/19 10:52 ALT 22 units/L (7-56) 04/14/19 10:52 Alkaline Phosphatase 74 units/L (35-129) 04/14/19 10:52 Total Protein 7.2 g/dL (6.3-8.2) 04/14/19 10:52 Albumin 3.5 g/dL (3.9-5) L 04/14/19 10:52 Albumin/Globulin Ratio 0.9 % 04/14/19 10:52 Urine Color [place] (Yellow) 04/14/19 12:06 Urine Turbidity Cloudy (Clear) 04/14/19 12:06 Urine pH 5.0 (5.0-7.0) 04/14/19 12:06 Ur Specific [place] 1.015 (1.003-1.030) 04/14/19 12:06 Urine Protein 100 mg/dl mg/dL (Negative) 04/14/19 12:06 Urine Glucose (UA) 50 mg/dL (Negative) 04/14/19 12:06 Urine Ketones Neg mg/dL (Negative) 04/14/19 12:06 Urine Blood Mod (Negative) 04/14/19 12:06 Urine Nitrite Neg (Negative) 04/14/19 12:06 Urine Bilirubin Neg (Negative) 04/14/19 12:06 Urine Urobilinogen 4.0 mg/dL (<2.0) 04/14/19 12:06 Ur Leukocyte Esterase Mod (Negative) 04/14/19 12:06 Urine WBC (Auto) 38.0 /HPF (0.0-6.0) H 04/14/19 12:06 Urine RBC (Auto) 14.0 /HPF (0.0-6.0) 04/14/19 12:06 U Epithel Cells (Auto) 7.0 /HPF (0-13.0) 04/14/19 12:06 Urine Bacteria (Auto) 1+ /HPF (Negative) 04/14/19 12:06 Urine Mucus Few /HPF 04/14/19 12:06 Urine Eosinophils .25% (None Seen) 04/15/19 Unknown Urine Creatinine 140.2 mg/dL (0.1-20.0) H 04/15/19 Unknown Urine Sodium 21 mmol/L 04/15/19 Unknown Vancomycin Trough 7.2 ug/mL (5.0-20.0) 04/16/19 05:07 Active Medications - Current Medications Current Medications: Generic Name Dose Route Start Last Admin Trade Name Freq PRN Reason Stop Dose Admin Acetaminophen 650 mg 04/14/19 15:30 04/15/19 21:39 Tylenol PO 650 mg Q4H PRN Administration Pain MILD(1-3)/Fever >100.5/FIGUEROA Doxepin HCl 50 mg 04/14/19 22:00 04/15/19 21:39 Sinequan PO 50 mg HS SANDHYA Administration Gabapentin 800 mg 04/15/19 08:00 04/16/19 11:39 Gabapentin PO 800 mg TID SANDHYA Administration Cefepime HCl 2 gm in 100 mls @ 200 mls/hr 04/15/19 22:00 04/15/19 21:38 Cefepime/Ns 2 Gm/100 Ml IV 200 mls/hr Q12HR SANDHYA Administration Sodium Chloride 1,000 mls @ 75 mls/hr 04/15/19 23:00 04/16/19 11:43 Nacl 0.9% 1000 Ml IV 75 mls/hr DIRECT SANDHYA Administration Vancomycin HCl 1 gm in 250 mls @ 167.007 mls/hr 04/16/19 12:00 04/16/19 11:40 Vancomycin/Ns 1 Gm/250 Ml IV 167.007 mls/hr Q24H SANDHYA Administration Nystatin 100,000 unit 04/15/19 23:22 04/16/19 11:39 Nystatin PO 100,000 unit TID SANDHYA Administration Ondansetron HCl 4 mg 04/14/19 15:30 04/14/19 16:46 Zofran IV 4 mg Q8H PRN Administration Nausea And Vomiting Quetiapine Fumarate 200 mg 04/14/19 22:00 04/15/19 21:40 Seroquel PO 200 mg HS SANHDYA Administration Sodium Chloride 10 ml 04/14/19 22:00 04/16/19 11:40 Sodium Chloride Flush Syringe 10 Ml IV 10 ml BID SANDHYA Administration Sodium Chloride 10 ml 04/14/19 15:30 Sodium Chloride Flush Syringe 10 Ml IV PRN PRN LINE FLUSH
[2019-04-16 13:39] LABS: Hematocrit 31.9 % (30.3-42.9); Hemoglobin 10.5 gm/dl (10.1-14.3); Mean Corpuscular HGB Conc 33 % (30-34); Mean Corpuscular Volume 82 fl (79-97); Red Blood Count 3.89 M/mm3 (3.65-5.03); Red Cell Distribution Width 14.8 % (13.2-15.2)
[2019-04-16] MEDS ORDERED: LIDOCAINE (1%) 10 MG/1 ML VIAL 20 ML MDV INFILTRATI ONE (13:40)
[2019-04-16 13:45] LABS: Platelet Count 85 K/mm3 (140-440)
[2019-04-16] MEDS: CEFEPIME/NS 2 GM/100 ML 2 GM/100 ML BAG IV SCH ×3 (13:46→22:00)
[2019-04-16 14:03] LABS: Calcium 7.1 mg/dL (8.4-10.2)
[2019-04-16 14:42] LABS: Band Neutrophils # (Manual) 0.6 K/mm3; Basophils % (Manual) 0 % (0.0-1.8); Monocytes % (Manual) 0 % (0.0-7.3); Total Cells Counted 100
[2019-04-16 14:43] LABS: Platelet Estimate Consistent w Auto; RBC Morphology Normal
--- NOTE | 2019-04-16 14:52 | Event Note ---
Date: 04/16/19 Ultrasound Left axilla reviewed - 5cm fluid collection, likely abscess. The area on exam is more fluctuant today. Will perform aspiration and possible incision and drainage - discussed with patient and consent obtained.
--- NOTE | 2019-04-16 14:55 | Procedure Note ---
Date of procedure: 04/16/19 Pre-op diagnosis: abscess of left axilla Post-op diagnosis: same Procedure: Aspiration, incision and drainage of left axillary abscess Findings: Time out performed. L axilla prepped with betadine in sterile fashion. 1% lidocaine infiltrated into the skin and the fluid cavity aspirated with a 21 gauge needle. There was return of purulent fluid. The decision was made to proceed with incision and drainage. Using an 11 blade a 2 cm incision was made in the skin overlying the area of fluctuance. There was immediate return of purulent fluid. Approximately 20 cc of purulent fluid was evacuated. Cultures were obtained. The wound was probed with cotton tip applicator and loculations broken up. Once all purulent fluid was expressed, the wound was irrigated with saline. Hemostasis was ensured. The wound was packed with the corner of a saline moistened 4x4 gauze, covered with dry 4x4 gauze and tape. The patient tolerated the procedure well. All sharps were disposed of appropriately. Anesthesia: local Surgeon: DIANELYS MILLER Estimated blood loss: minimal Pathology: list (wound culture) Specimen disposition: to lab Condition: stable Disposition: PACU
[2019-04-16] MEDS ORDERED: MORPHINE 2 MG/1 ML INJ IV ONE (15:54)
[2019-04-16] MEDS: ONDANSETRON 4 MG/2 ML INJ IV PRN (16:23)
[2019-04-16] MEDS: ACETAMINOPHEN 325 MG TAB PO PRN ×2 (16:37→23:43)
--- NOTE | 2019-04-16 16:40 | Event Note ---
Date: 04/16/19 Called by patient's RN stating left axillary dressing soaked with blood. Patient seen Dressing and packing removed. There is venous oozing from the skin. Pressure held for 10 minutes with resolution of bleeding. There was no hematoma. Surgicel packed into wound and covered with 4x4 gauze compression dressing. Patient tolerated well. RN notified to continue to monitor and call if needed. Patient instructed to keep arm at her side and to avoid too much movement. Will follow up in am.
[2019-04-16] MEDS ORDERED: LIDOCAINE 1%/EPINEPHRINE 1:100,000 VIAL (20 ML) INFILTRATI NR (17:00)
--- NOTE | 2019-04-16 20:11 | XRay Report ---
CHEST 1 VIEW INDICATION / CLINICAL INFORMATION: chest pain. COMPARISON: 04/14/2019 FINDINGS: SUPPORT DEVICES: None. HEART / MEDIASTINUM: No significant abnormality. LUNGS / PLEURA: No significant pulmonary or pleural abnormality. No pneumothorax. There is minimal ri ght basilar atelectasis. ADDITIONAL FINDINGS: No significant additional findings. IMPRESSION: 1. No significant change Signer Name: Herbert Mendoza MD Signed: 04/16/2019 8:06 PM Workstation Name: [id number]
--- NOTE | 2019-04-16 20:22 | Nuclear Medicine Report ---
TECHNICAL DATA: Inhaled administration followed by immediate static images of chest in multiple projections coordin ed with breathing instructions. Followed by immediate static images of chest in multiple projections post I.V. injection. 7.0 millicuries of 133 Xenon is administered by inhalation. Pulmonary wash-in, equilibrium, and washout phases are performed. Then, 5.0 millicuries of 99m Tc MAA is administered intravenously. FINDINGS: Chest X ray compared 04/16/2019 The ventilation scan is normal without evidence of delayed washout. The perfusion scan demonstrates h omogeneous uptake without evidence of segmental or subsegmental defects. IMPRESSION: Normal lung scan. Signer Name: Jean Hughes MD Signed: 04/16/2019 8:17 PM Workstation Name: [id number]
[2019-04-16] MEDS ORDERED: POTASSIUM CHLORIDE ER 20 MEQ TAB PO ONE (20:23)
[2019-04-16] MEDS ORDERED: MAGNESIUM SULFATE 2 GM/50 ML BAG IV ONE (20:23)
[2019-04-16] MEDS: QUEtiapine 200 MG TAB PO SCH ×2 (20:57→22:00)
[2019-04-16] MEDS: DOXEPIN 25 MG CAP PO SCH ×2 (20:57→22:00)
[2019-04-17] MEDS: SODIUM CHLORIDE 0.9% 1000 ML 1,000 ML IV SCH (05:49)
[2019-04-17] MEDS: GABAPENTIN 400 MG CAP PO SCH ×3 (08:00→20:41)
[2019-04-17] MEDS: NYSTATIN 500,000 UNIT/5 ML ORAL LIQD PO SCH ×3 (08:00→20:40)
--- NOTE | 2019-04-17 08:11 | Progress Note ---
Assessment and Plan 1. Acute kidney injury: Vasomotor HARDIK in the setting of volume depletion and hypotension. CT abdomen was negative for hydro. Continue IV fluids. Renal function is improving. Monitor renal function. Renal prognosis is guarded. Avoid nephrotoxic agents. Meds dosage based on GFR. 2. FEN: Hyponatremia, 2/2 volume depletion. Sodium level is better. Hypokalemia, replete K. Metabolic acidosis, continue IV fluids. Monitor lytes. 3. Severe Sepsis (POA): On Vancomycin. 4. Suspected pyelonephritis: Continue Abx. 5. L axillary cellulitis: POA. 6. PTSD. Examination: General appearance: well-developed, appears stated age, no distress HEENT: [place], [place], mucous membranes moist, hearing intact, vision intact Neck: neck supple, trachea midline Respiratory: Clear to Ascultation Heart: regular, S1S2, no murmur Gastrointestinal: normoactive bowel sounds, not tender, not distended Integumentary: L axilla dressing Neurologic: no focal deficit, no asterixis, alert and oriented x3 Ext: no edema Psychiatric: cooperative Subjective Date of service: 04/17/19 Interval history: Patient was seen and examined at the bedside. Doing better. at the bedside. Objective - Vital Signs Vital signs: Vital Signs - 12hr 04/16/19 04/17/19 04/17/19 23:33 01:00 05:38 Temperature 100.9 F H 98.5 F Pulse Rate 128 H 119 H Pulse Rate [ 129 H From Monitor] Respiratory 21 20 Rate Blood Pressure 95/46 89/48 O2 Sat by Pulse 95 97 Oximetry - Lab 04/17/19 07:39 04/17/19 07:39 Most recent lab results Calcium 7.1 mg/dL (8.4-10.2) L 04/16/19 13:18 Phosphorus 2.70 mg/dL (2.5-4.5) 04/16/19 05:07 Magnesium 1.50 mg/dL (1.7-2.3) L 04/16/19 05:07 Urine Creatinine 140.2 mg/dL (0.1-20.0) H 04/15/19 Unknown Urine Sodium 21 mmol/L 04/15/19 Unknown Medications & Allergies - Medications Allergies/Adverse Reactions: Allergies No Known Allergies Allergy (Unverified 04/14/19 10:45) Home Medications: Home Medications Medication Instructions Recorded Confirmed Last Taken Type Doxepin [SINEquan] 50 mg PO HS 04/14/19 04/14/19 04/10/19 History Gabapentin [Neurontin] 800 mg PO TID 04/14/19 04/14/19 Unknown History Ibuprofen [Motrin 800 MG tab] 800 mg PO TID PRN 04/14/19 04/14/19 Unknown History Quetiapine Fumarate [SEROquel] 200 mg PO QHS 04/14/19 04/14/19 Unknown History Active Medications: Generic Name Dose Route Start Last Admin Trade Name Freq PRN Reason Stop Dose Admin Acetaminophen 650 mg 04/14/19 15:30 04/16/19 23:43 Tylenol PO 650 mg Q4H PRN Administration Pain MILD(1-3)/Fever >100.5/FIGUEROA Acetaminophen/Hydrocodone Bitart 1 each 04/16/19 15:42 [place] 5/325 PO Q4H PRN Pain, Moderate (4-6) Doxepin HCl 50 mg 04/14/19 22:00 04/16/19 22:00 [place] PO Not Given HS SANDHYA Gabapentin 800 mg 04/15/19 08:00 04/16/19 20:55 Gabapentin PO 800 mg TID SANDHYA Administration Cefepime HCl 2 gm in 100 mls @ 200 mls/hr 04/15/19 22:00 04/16/19 22:00 Cefepime/Ns 2 Gm/100 Ml IV Not Given Q12HR SANDHYA Sodium Chloride 1,000 mls @ 75 mls/hr 04/15/19 23:00 04/17/19 05:49 Nacl 0.9% 1000 Ml IV 75 mls/hr DIRECT SANDHYA Administration Vancomycin HCl 1 gm in 250 mls @ 167.007 mls/hr 04/16/19 12:00 04/16/19 11:40 Vancomycin/Ns 1 Gm/250 Ml IV 167.007 mls/hr Q24H SANDHYA Administration Lidocaine/Epinephrine 20 ml 04/16/19 17:00 Xylocaine 1%/ Epi 1:100,000 INFILTRATI 04/17/19 16:59 ONCE NR Nystatin 100,000 unit 04/15/19 23:22 04/16/19 20:56 Nystatin PO 100,000 unit TID SANDHYA Administration Ondansetron HCl 4 mg 04/14/19 15:30 04/16/19 16:23 Zofran IV 4 mg Q8H PRN Administration Nausea And Vomiting Quetiapine Fumarate 200 mg 04/14/19 22:00 04/16/19 22:00 Seroquel PO Not Given HS SANDHYA Sodium Chloride 10 ml 04/14/19 22:00 04/16/19 22:00 Sodium Chloride Flush Syringe 10 Ml IV Not Given BID SANDHYA Sodium Chloride 10 ml 04/14/19 15:30 Sodium Chloride Flush Syringe 10 Ml IV PRN PRN LINE FLUSH Sodium Chloride 10 ml 04/16/19 13:05 Sodium Chloride Flush Syringe 10 Ml IV PRN PRN LINE FLUSH
[2019-04-17 08:40] LABS: Basophils % (Auto) 0.1 % (0.0-1.8); Eosinophils # (Auto) 0.5 K/mm3 (0.0-0.4); Eosinophils % (Auto) 3.7 % (0.0-4.3); Hematocrit 29.3 % (30.3-42.9); Hemoglobin 9.7 gm/dl (10.1-14.3); Lymphocytes # (Auto) 0.5 K/mm3 (1.2-5.4); Lymphocytes % (Auto) 4.3 % (13.4-35.0); Mean Corpuscular HGB Conc 33 % (30-34); Mean Corpuscular Volume 82 fl (79-97); Monocytes # (Auto) 0.6 K/mm3 (0.0-0.8); Red Blood Count 3.59 M/mm3 (3.65-5.03); Red Cell Distribution Width 14.8 % (13.2-15.2)
[2019-04-17 08:41] LABS: Platelet Count 79 K/mm3 (140-440)
[2019-04-17 08:54] LABS: Calcium 7.3 mg/dL (8.4-10.2)
[2019-04-17] MEDS: CEFEPIME/NS 2 GM/100 ML 2 GM/100 ML BAG IV SCH (10:27)
--- NOTE | 2019-04-17 11:29 | Progress Note ---
Assessment and Plan Assessment and plan: Chest pain. Follow up serial troponins. Patient reported the pain is transient and related to deep inspiration. V/Q scan of the chest negative. Sepsis UTI and abscess the source of infection. Abd CT revealed both kidneys were enlarged and appeared edematous with possibility of pyelonephritis and/or nephritis. No hydronephrosis. Right nephrolithiasis without obstruction.. Patient initiated on IV Cefepime and IV Vancomycin. pressors if necessary. HARDIK (acute kidney injury) IV fluids for now Nephrology consulted ATN is a high possibility Hyponatremia IV NS for now. Resolved Hypokalemia Supplemented Left axillary Abscess Surgery consulted Pyelonephritis/UTI (urinary tract infection) CT results noted as above On Cefepime pending culture DVT prophylaxis History Interval history: No New issues overnight Hospitalist Physical - Constitutional Vitals: Temp Pulse Resp BP Pulse Ox 98.5 F 119 H 20 89/48 96 04/17/19 05:38 04/17/19 05:38 04/17/19 05:38 04/17/19 05:38 04/17/19 08:32 General appearance: Present: no acute distress, well-nourished - EENT Eyes: Present: PERRL, EOM intact ENT: hearing intact, clear oral mucosa, dentition normal - Neck Neck: Present: supple, normal ROM - Respiratory Respiratory effort: normal Respiratory: bilateral: CTA - Cardiovascular Rhythm: regular Heart Sounds: Present: S1 & S2. Absent: gallop, rub - Extremities Extremities: no ischemia, No edema, Full ROM - Abdominal General gastrointestinal: soft, non-tender, non-distended, normal bowel sounds - Integumentary Integumentary: Present: clear, warm, dry - Neurologic Neurologic: CNII-XII intact, moves all extremities Results - Labs CBC & Chem 7: 04/17/19 07:39 04/17/19 07:39 Labs: Laboratory Last Values WBC 12.6 K/mm3 (4.5-11.0) H 04/17/19 07:39 RBC 3.59 M/mm3 (3.65-5.03) L 04/17/19 07:39 Hgb 9.7 gm/dl (10.1-14.3) L 04/17/19 07:39 Hct 29.3 % (30.3-42.9) L 04/17/19 07:39 MCV 82 fl (79-97) 04/17/19 07:39 MCH 27 pg (28-32) L 04/17/19 07:39 MCHC 33 % (30-34) 04/17/19 07:39 RDW 14.8 % (13.2-15.2) 04/17/19 07:39 Plt Count 79 K/mm3 (140-440) L 04/17/19 07:39 Lymph % (Auto) 4.3 % (13.4-35.0) L 04/17/19 07:39 [place] % (Auto) 5.0 % (0.0-7.3) 04/17/19 07:39 Eos % (Auto) 3.7 % (0.0-4.3) 04/17/19 07:39 Baso % (Auto) 0.1 % (0.0-1.8) 04/17/19 07:39 Lymph # 0.5 K/mm3 (1.2-5.4) L 04/17/19 07:39 [place] # 0.6 K/mm3 (0.0-0.8) 04/17/19 07:39 Eos # 0.5 K/mm3 (0.0-0.4) H 04/17/19 07:39 Baso # 0.0 K/mm3 (0.0-0.1) 04/17/19 07:39 Add Manual Diff Complete 04/16/19 13:18 Total Counted 100 04/16/19 13:18 Seg Neutrophils % 86.9 % (40.0-70.0) H 04/17/19 07:39 Seg Neuts % (Manual) 89.0 % (40.0-70.0) H 04/16/19 13:18 Band Neutrophils % 4.0 % 04/16/19 13:18 Lymphocytes % (Manual) 3.0 % (13.4-35.0) L 04/16/19 13:18 Reactive Lymphs % (Man) 0 % 04/16/19 13:18 Monocytes % (Manual) 0 % (0.0-7.3) 04/16/19 13:18 Eosinophils % (Manual) 4.0 % (0.0-4.3) 04/16/19 13:18 Basophils % (Manual) 0 % (0.0-1.8) 04/16/19 13:18 Metamyelocytes % 0 % 04/16/19 13:18 Myelocytes % 0 % 04/16/19 13:18 Promyelocytes % 0 % 04/16/19 13:18 Blast Cells % 0 % 04/16/19 13:18 Nucleated RBC % Not Reportable 04/16/19 13:18 Seg Neutrophils # 10.9 K/mm3 (1.8-7.7) H 04/17/19 07:39 Seg Neutrophils # Man 12.8 K/mm3 (1.8-7.7) H 04/16/19 13:18 Band Neutrophils # 0.6 K/mm3 04/16/19 13:18 Lymphocytes # (Manual) 0.4 K/mm3 (1.2-5.4) L 04/16/19 13:18 Abs React Lymphs (Man) 0.0 K/mm3 04/16/19 13:18 Monocytes # (Manual) 0.0 K/mm3 (0.0-0.8) 04/16/19 13:18 Eosinophils # (Manual) 0.6 K/mm3 (0.0-0.4) H 04/16/19 13:18 Basophils # (Manual) 0.0 K/mm3 (0.0-0.1) 04/16/19 13:18 Metamyelocytes # 0.0 K/mm3 04/16/19 13:18 Myelocytes # 0.0 K/mm3 04/16/19 13:18 Promyelocytes # 0.0 K/mm3 04/16/19 13:18 Blast Cells # 0.0 K/mm3 04/16/19 13:18 WBC Morphology Not Reportable 04/16/19 13:18 Hypersegmented Neuts Not Reportable 04/16/19 13:18 Hyposegmented Neuts Not Reportable 04/16/19 13:18 Hypogranular Neuts Not Reportable 04/16/19 13:18 Smudge Cells Not Reportable 04/16/19 13:18 Toxic Granulation Not Reportable 04/16/19 13:18 Toxic Vacuolation Not Reportable 04/16/19 13:18 Dohle Bodies Not Reportable 04/16/19 13:18 Pelger-Huet Anomaly Not Reportable 04/16/19 13:18 Ab Rods Not Reportable 04/16/19 13:18 Platelet Estimate Consistent w auto 04/16/19 13:18 Clumped Platelets Not Reportable 04/16/19 13:18 Plt Clumps, EDTA Not Reportable 04/16/19 13:18 Large Platelets Not Reportable 04/16/19 13:18 Giant Platelets Not Reportable 04/16/19 13:18 Platelet Satelliting Not Reportable 04/16/19 13:18 Plt Morphology Comment Not Reportable 04/16/19 13:18 RBC Morphology Normal 04/16/19 13:18 Dimorphic RBCs Not Reportable 04/16/19 13:18 Polychromasia Not Reportable 04/16/19 13:18 Hypochromasia Not Reportable 04/16/19 13:18 Poikilocytosis Not Reportable 04/16/19 13:18 Anisocytosis Not Reportable 04/16/19 13:18 Microcytosis Not Reportable 04/16/19 13:18 Macrocytosis Not Reportable 04/16/19 13:18 Spherocytes Not Reportable 04/16/19 13:18 Pappenheimer Bodies Not Reportable 04/16/19 13:18 Sickle Cells Not Reportable 04/16/19 13:18 Target Cells Not Reportable 04/16/19 13:18 Tear Drop Cells Not Reportable 04/16/19 13:18 Ovalocytes Not Reportable 04/16/19 13:18 Helmet Cells Not Reportable 04/16/19 13:18 [place] Bodies Not Reportable 04/16/19 13:18 [place] Rings Not Reportable 04/16/19 13:18 [place] Cells Not Reportable 04/16/19 13:18 Bite Cells Not Reportable 04/16/19 13:18 Crenated Cell Not Reportable 04/16/19 13:18 Elliptocytes Not Reportable 04/16/19 13:18 Acanthocytes (Spur) Not Reportable 04/16/19 13:18 Rouleaux Not Reportable 04/16/19 13:18 Hemoglobin C Crystals Not Reportable 04/16/19 13:18 Schistocytes Not Reportable 04/16/19 13:18 Malaria parasites Not Reportable 04/16/19 13:18 Mg Bodies Not Reportable 04/16/19 13:18 Hem Pathologist Commnt No 04/16/19 13:18 PT 13.9 Sec. (12.2-14.9) 04/14/19 10:52 INR 1.08 (0.87-1.13) 04/14/19 10:52 D-Dimer 2674.36 ng/mlDDU (0-234) H 04/16/19 13:18 VBG pH 7.468 (7.320-7.420) H 04/14/19 10:52 Sodium 141 mmol/L (137-145) 04/17/19 07:39 Potassium 3.5 mmol/L (3.6-5.0) L 04/17/19 07:39 Chloride 112.1 mmol/L (98-107) H 04/17/19 07:39 Carbon Dioxide 16 mmol/L (22-30) L 04/17/19 07:39 Anion Gap 16 mmol/L 04/17/19 07:39 BUN 29 mg/dL (7-17) H 04/17/19 07:39 Creatinine 1.2 mg/dL (0.7-1.2) 04/17/19 07:39 Estimated GFR 59 ml/min 04/17/19 07:39 BUN/Creatinine Ratio 24 % 04/17/19 07:39 Glucose 105 mg/dL (65-100) H 04/17/19 07:39 Lactic Acid 1.60 mmol/L (0.7-2.0) 04/14/19 14:43 Calcium 7.3 mg/dL (8.4-10.2) L 04/17/19 07:39 Phosphorus 2.70 mg/dL (2.5-4.5) 04/16/19 05:07 Magnesium 2.10 mg/dL (1.7-2.3) 04/17/19 07:39 Total Bilirubin 0.80 mg/dL (0.1-1.2) 04/14/19 10:52 AST 25 units/L (5-40) 04/14/19 10:52 ALT 22 units/L (7-56) 04/14/19 10:52 Alkaline Phosphatase 74 units/L (35-129) 04/14/19 10:52 Total Protein 7.2 g/dL (6.3-8.2) 04/14/19 10:52 Albumin 3.5 g/dL (3.9-5) L 04/14/19 10:52 Albumin/Globulin Ratio 0.9 % 04/14/19 10:52 Urine Color [place] (Yellow) 04/14/19 12:06 Urine Turbidity Cloudy (Clear) 04/14/19 12:06 Urine pH 5.0 (5.0-7.0) 04/14/19 12:06 Ur Specific [place] 1.015 (1.003-1.030) 04/14/19 12:06 Urine Protein 100 mg/dl mg/dL (Negative) 04/14/19 12:06 Urine Glucose (UA) 50 mg/dL (Negative) 04/14/19 12:06 Urine Ketones Neg mg/dL (Negative) 04/14/19 12:06 Urine Blood Mod (Negative) 04/14/19 12:06 Urine Nitrite Neg (Negative) 04/14/19 12:06 Urine Bilirubin Neg (Negative) 04/14/19 12:06 Urine Urobilinogen 4.0 mg/dL (<2.0) 04/14/19 12:06 Ur Leukocyte Esterase Mod (Negative) 04/14/19 12:06 Urine WBC (Auto) 38.0 /HPF (0.0-6.0) H 04/14/19 12:06 Urine RBC (Auto) 14.0 /HPF (0.0-6.0) 04/14/19 12:06 U Epithel Cells (Auto) 7.0 /HPF (0-13.0) 04/14/19 12:06 Urine Bacteria (Auto) 1+ /HPF (Negative) 04/14/19 12:06 Urine Mucus Few /HPF 04/14/19 12:06 Urine Eosinophils .25% (None Seen) 04/15/19 Unknown Urine Creatinine 140.2 mg/dL (0.1-20.0) H 04/15/19 Unknown Urine Sodium 21 mmol/L 04/15/19 Unknown Vancomycin Trough 7.2 ug/mL (5.0-20.0) 04/16/19 05:07 Active Medications - Current Medications Current Medications: Generic Name Dose Route Start Last Admin Trade Name Freq PRN Reason Stop Dose Admin Acetaminophen 650 mg 04/14/19 15:30 04/16/19 23:43 Tylenol PO 650 mg Q4H PRN Administration Pain MILD(1-3)/Fever >100.5/FIGUEROA Acetaminophen/Hydrocodone Bitart 1 each 04/16/19 15:42 [place] 5/325 PO Q4H PRN Pain, Moderate (4-6) Doxepin HCl 50 mg 04/14/19 22:00 04/16/19 22:00 [place] PO Not Given HS SANDHYA Gabapentin 800 mg 04/15/19 08:00 04/17/19 08:00 Gabapentin PO 800 mg TID SANDHYA Administration Cefepime HCl 2 gm in 100 mls @ 200 mls/hr 04/15/19 22:00 04/17/19 10:27 Cefepime/Ns 2 Gm/100 Ml IV 200 mls/hr Q12HR SANDHYA Administration Sodium Chloride 1,000 mls @ 75 mls/hr 04/15/19 23:00 04/17/19 05:49 Nacl 0.9% 1000 Ml IV 75 mls/hr DIRECT SANDHYA Administration Vancomycin HCl 1 gm in 250 mls @ 167.007 mls/hr 04/16/19 12:00 04/16/19 11:40 Vancomycin/Ns 1 Gm/250 Ml IV 167.007 mls/hr Q24H SANDHYA Administration Lidocaine/Epinephrine 20 ml 04/16/19 17:00 Xylocaine 1%/ Epi 1:100,000 INFILTRATI 04/17/19 16:59 ONCE NR Nystatin 100,000 unit 04/15/19 23:22 04/17/19 08:00 Nystatin PO 100,000 unit TID SANDHYA Administration Ondansetron HCl 4 mg 04/14/19 15:30 04/16/19 16:23 Zofran IV 4 mg Q8H PRN Administration Nausea And Vomiting Quetiapine Fumarate 200 mg 04/14/19 22:00 04/16/19 22:00 Seroquel PO Not Given HS SANDHYA Sodium Chloride 10 ml 04/14/19 22:00 04/17/19 10:29 Sodium Chloride Flush Syringe 10 Ml IV 10 ml BID SANDHYA Administration Sodium Chloride 10 ml 04/14/19 15:30 Sodium Chloride Flush Syringe 10 Ml IV PRN PRN LINE FLUSH Sodium Chloride 10 ml 04/16/19 13:05 Sodium Chloride Flush Syringe 10 Ml IV PRN PRN LINE FLUSH
--- NOTE | 2019-04-17 11:49 | Progress Note ---
Assessment and Plan Cultures: 04/14/2019 blood culture: No growth thus far 04/14/2019 urine culture: skin bouchra 04/16/2019 left axilla abscess: Staph aureus A/P: 44/F with h/o back pain, previous left axillary wound infection that apparently developed after she underwent a mammogram and was noted to have a lump that needed a biopsy (per patient it turned out to be dense fibrotic tissue) admitted with: 1) Severe sepsis: Source: bilateral pyelonephritis / urinary tract infection v/s left axillary abscess. She has severe b/l flank tenderness, UA with pyuria. Continues on broad spectrum abx. 2) Left axillary abscess: s/p I&D by Dr. Rizo on 04/16/2019, prelim culture growing Staph aureus. 3) Acute renal failure: renally dose antibiotics. creatinine improving. 4) Thrombocytopenia: Recs: discontinued Cefepime Continue IV vancomycin until final ID of Staph aureus, anticipate discharge on PO Abx. Patient is on Effexor, hence cannot use Linezolid Prasanna Ch MD, FACP [facility] ([facility] C: [phone] O: [phone] F: [phone] Subjective Date of service: 04/17/19 Interval history: Reports feeling much better today after the drainage procedure from left axilla. Eating drinking well. Had a BM, no diarrhea. Feels 80% back to baseline. Objective - Exam Narrative Exam: Physical Exam: Constitutional: Alert, cooperative. No acute distress Head, Ears, Nose: Normocephalic, atraumatic. External ears, nose normal Eyes: Conjunctivae/corneas clear. No icterus. No ptosis. Neck: Supple, no meningeal signs Cardiovascular: S1, S2 normal Respiratory: Good air entry, clear to auscultation bilaterally GI: Soft, non-tender; bowel sounds normal. No peritoneal signs Musculoskeletal: no pedal edema. No CVA tenderness Skin: No rash or abscess Hem/Lymphatic: left axilla dressing +, tenderness +. No lymphangitis Psych: Mood ok. Affect normal Neurological: Awake, alert, oriented. No gross abnormality - Constitutional Vitals: Vital Signs Temp Pulse Resp BP Pulse Ox 98.5 F 119 H 20 89/48 96 04/17/19 05:38 04/17/19 05:38 04/17/19 05:38 04/17/19 05:38 04/17/19 08:32 Temperature -Last 24 Hours Temperature 98.5 F Temperature 100.9 F Temperature 99.9 F Temperature 103.0 F Temperature 102.2 F - Labs CBC & Chem 7: 04/17/19 07:39 04/17/19 07:39 Labs: Abnormal lab results 04/16/19 04/16/19 04/16/19 Range/Units 05:07 13:18 13:18 WBC 14.4 H (4.5-11.0) K/mm3 RBC (3.65-5.03) M/mm3 Hgb (10.1-14.3) gm/dl Hct (30.3-42.9) % MCH 27 L (28-32) pg Plt Count 85 L (140-440) K/mm3 Lymph % (Auto) (13.4-35.0) % Lymph # (1.2-5.4) K/mm3 Eos # (0.0-0.4) K/mm3 Seg Neutrophils % (40.0-70.0) % Seg Neuts % (Manual) 89.0 H (40.0-70.0) % Lymphocytes % (Manual) 3.0 L (13.4-35.0) % Seg Neutrophils # (1.8-7.7) K/mm3 Seg Neutrophils # Man 12.8 H (1.8-7.7) K/mm3 Lymphocytes # (Manual) 0.4 L (1.2-5.4) K/mm3 Eosinophils # (Manual) 0.6 H (0.0-0.4) K/mm3 D-Dimer 2674.36 H (0-234) ng/mlDDU Potassium (3.6-5.0) mmol/L Chloride (98-107) mmol/L Carbon Dioxide (22-30) mmol/L BUN (7-17) mg/dL Creatinine (0.7-1.2) mg/dL Glucose (65-100) mg/dL Calcium (8.4-10.2) mg/dL Magnesium 1.50 L (1.7-2.3) mg/dL 04/16/19 04/17/19 04/17/19 Range/Units 13:18 07:39 07:39 WBC 12.6 H (4.5-11.0) K/mm3 RBC 3.59 L (3.65-5.03) M/mm3 Hgb 9.7 L (10.1-14.3) gm/dl Hct 29.3 L (30.3-42.9) % MCH 27 L (28-32) pg Plt Count 79 L (140-440) K/mm3 Lymph % (Auto) 4.3 L (13.4-35.0) % Lymph # 0.5 L (1.2-5.4) K/mm3 Eos # 0.5 H (0.0-0.4) K/mm3 Seg Neutrophils % 86.9 H (40.0-70.0) % Seg Neuts % (Manual) (40.0-70.0) % Lymphocytes % (Manual) (13.4-35.0) % Seg Neutrophils # 10.9 H (1.8-7.7) K/mm3 Seg Neutrophils # Man (1.8-7.7) K/mm3 Lymphocytes # (Manual) (1.2-5.4) K/mm3 Eosinophils # (Manual) (0.0-0.4) K/mm3 D-Dimer (0-234) ng/mlDDU Potassium 3.3 L 3.5 L (3.6-5.0) mmol/L Chloride 108.8 H 112.1 H (98-107) mmol/L Carbon Dioxide 13 L 16 L (22-30) mmol/L BUN 41 H 29 H (7-17) mg/dL Creatinine 1.8 H (0.7-1.2) mg/dL Glucose 165 H 105 H (65-100) mg/dL Calcium 7.1 L 7.3 L (8.4-10.2) mg/dL Magnesium (1.7-2.3) mg/dL
[2019-04-17] MEDS: VANCOMYCIN/NS 1 GM/250 ML 1 GM/250 ML BAG IV SCH (12:00)
--- NOTE | 2019-04-17 12:05 | Progress Note ---
Assessment and Plan 44 yo F s/p incision and drainage of left axilla abscess, POD 1 1. sepsis 2. UTI and possible pyelonephritis 3. HARDIK 4. left axilla abscess Plan: 1. continue abx per ID, prelim wound culture growing staph aureus, final pending 2. prn pain control 3. daily wound packing with mesalt - orders written for RN 4. no further surgical intervention. Pt may follow up in 7 days at [place] or in general surgery clinic upon dc. Will s/o. Thank you, please call with questions Subjective Date of service: 04/17/19 Narrative: Pt seen and examined. States she is feeling better today. Tm 103. No n/v, cp, sob. Objective Vital Signs - 12hr 04/17/19 04/17/19 04/17/19 01:00 05:38 08:32 Temperature 98.5 F Pulse Rate 119 H Pulse Rate [ 129 H From Monitor] Respiratory 20 Rate Blood Pressure 89/48 O2 Sat by Pulse 97 96 Oximetry - General physical appearance Narrative Exam: Gen: AAOx3. NAD CV: s1, S2+ Resp: even and unlabored Ext: L axillary dressing with seropurulent drainage. Dressing and packing removed. No bleeding. +drainage of seropurulent fluid. Minimal TTP. Packed with one piece of mesalt. Covered with gauze and tape. - Labs 04/17/19 07:39 04/17/19 07:39 Diabetes panel 04/16/19 04/17/19 Range/Units 13:18 07:39 Sodium 138 141 (137-145) mmol/L Potassium 3.3 L 3.5 L (3.6-5.0) mmol/L Chloride 108.8 H 112.1 H (98-107) mmol/L Carbon Dioxide 13 L 16 L (22-30) mmol/L BUN 41 H 29 H (7-17) mg/dL Creatinine 1.8 H 1.2 (0.7-1.2) mg/dL Glucose 165 H 105 H (65-100) mg/dL Calcium 7.1 L 7.3 L (8.4-10.2) mg/dL Calcium panel 04/16/19 04/17/19 Range/Units 13:18 07:39 Calcium 7.1 L 7.3 L (8.4-10.2) mg/dL Pituitary panel 04/16/19 04/17/19 Range/Units 13:18 07:39 Sodium 138 141 (137-145) mmol/L Potassium 3.3 L 3.5 L (3.6-5.0) mmol/L Chloride 108.8 H 112.1 H (98-107) mmol/L Carbon Dioxide 13 L 16 L (22-30) mmol/L BUN 41 H 29 H (7-17) mg/dL Creatinine 1.8 H 1.2 (0.7-1.2) mg/dL Glucose 165 H 105 H (65-100) mg/dL Calcium 7.1 L 7.3 L (8.4-10.2) mg/dL Adrenal panel 04/16/19 04/17/19 Range/Units 13:18 07:39 Sodium 138 141 (137-145) mmol/L Potassium 3.3 L 3.5 L (3.6-5.0) mmol/L Chloride 108.8 H 112.1 H (98-107) mmol/L Carbon Dioxide 13 L 16 L (22-30) mmol/L BUN 41 H 29 H (7-17) mg/dL Creatinine 1.8 H 1.2 (0.7-1.2) mg/dL Glucose 165 H 105 H (65-100) mg/dL Calcium 7.1 L 7.3 L (8.4-10.2) mg/dL
[2019-04-17] MEDS: HYDROcodone/ACETAMINOPHEN 5-325 MG TAB PO PRN (16:14)
[2019-04-17] MEDS: ACETAMINOPHEN 325 MG TAB PO PRN (17:23)
[2019-04-17] MEDS ORDERED: POTASSIUM CHLORIDE ER 20 MEQ TAB PO ONE (21:16)
[2019-04-17] MEDS: DOXEPIN 25 MG CAP PO SCH (22:02)
[2019-04-17] MEDS: QUEtiapine 200 MG TAB PO SCH (22:02)
[2019-04-18] MEDS: SODIUM CHLORIDE 0.9% 1000 ML 1,000 ML IV SCH ×2 (01:31→10:07)
[2019-04-18 05:55] LABS: BUN/Creatinine Ratio 17; Blood Urea Nitrogen 15 mg/dL (7-17); Calcium 7.5 mg/dL (8.4-10.2); Hemolysis Index 2
[2019-04-18] MEDS: NYSTATIN 500,000 UNIT/5 ML ORAL LIQD PO SCH ×3 (08:00→20:10)
[2019-04-18] MEDS: GABAPENTIN 400 MG CAP PO SCH ×3 (08:00→20:10)
[2019-04-18] MEDS: ACETAMINOPHEN 325 MG TAB PO PRN (08:42)
--- NOTE | 2019-04-18 09:33 | Progress Note ---
Assessment and Plan 1. Acute kidney injury: Vasomotor HARDIK in the setting of volume depletion and hypotension. CT abdomen was negative for hydro. Continue IV fluids. Renal function is improving. Monitor renal function. Renal prognosis is guarded. Avoid nephrotoxic agents. Meds dosage based on GFR. 2. FEN: Hyponatremia, 2/2 volume depletion. Sodium level is better. Hypokalemia, replete K. Metabolic acidosis, improving. Monitor lytes. 3. Severe Sepsis (POA): On Vancomycin. 4. Suspected pyelonephritis: Continue Abx. 5. L axillary cellulitis / abscess: S/p I&D. 6. PTSD. Examination: General appearance: well-developed, appears stated age, no distress HEENT: ATNC, ELLE, mucous membranes moist, hearing intact, vision intact Neck: neck supple, trachea midline Respiratory: Clear to Ascultation Heart: regular, S1S2, no murmur Gastrointestinal: normoactive bowel sounds, not tender, not distended Integumentary: L axilla dressing Neurologic: no focal deficit, no asterixis, alert and oriented x3 Ext: no edema Psychiatric: cooperative Subjective Date of service: 04/18/19 Interval history: Patient was seen and examined at the bedside. Doing better. Objective - Vital Signs Vital signs: Vital Signs - 12hr 04/17/19 04/17/19 04/18/19 22:00 23:52 05:22 Temperature 99.1 F 98.7 F Pulse Rate 127 H 113 H Respiratory 18 20 18 Rate Respiratory 17 Rate [pt denies ] Blood Pressure 112/71 112/59 O2 Sat by Pulse 95 98 Oximetry - Lab 04/17/19 07:39 04/18/19 04:51 Most recent lab results Calcium 7.5 mg/dL (8.4-10.2) L 04/18/19 04:51 Phosphorus 2.70 mg/dL (2.5-4.5) 04/16/19 05:07 Magnesium 2.10 mg/dL (1.7-2.3) 04/17/19 07:39 Urine Creatinine 140.2 mg/dL (0.1-20.0) H 04/15/19 Unknown Urine Sodium 21 mmol/L 04/15/19 Unknown Medications & Allergies - Medications Allergies/Adverse Reactions: Allergies No Known Allergies Allergy (Unverified 04/14/19 10:45) Home Medications: Home Medications Medication Instructions Recorded Confirmed Last Taken Type Doxepin [SINEquan] 50 mg PO HS 04/14/19 04/14/19 04/10/19 History Gabapentin [Neurontin] 800 mg PO TID 04/14/19 04/14/19 Unknown History Ibuprofen [Motrin 800 MG tab] 800 mg PO TID PRN 04/14/19 04/14/19 Unknown History Quetiapine Fumarate [SEROquel] 200 mg PO QHS 04/14/19 04/14/19 Unknown History Active Medications: Generic Name Dose Route Start Last Admin Trade Name Freq PRN Reason Stop Dose Admin Acetaminophen 650 mg 04/14/19 15:30 04/18/19 08:42 Tylenol PO 650 mg Q4H PRN Administration Pain MILD(1-3)/Fever >100.5/FIGUEROA Acetaminophen/Hydrocodone Bitart 1 each 04/16/19 15:42 04/17/19 16:14 [place] 5/325 PO 1 each Q4H PRN Administration Pain, Moderate (4-6) Doxepin HCl 50 mg 04/14/19 22:00 04/17/19 22:02 Sinequan PO 50 mg HS SANDHYA Administration Gabapentin 800 mg 04/15/19 08:00 04/18/19 08:00 Gabapentin PO 800 mg TID SANDHYA Administration Sodium Chloride 1,000 mls @ 75 mls/hr 04/15/19 23:00 04/18/19 01:31 Nacl 0.9% 1000 Ml IV 75 mls/hr DIRECT SANDHYA Administration Vancomycin HCl 1 gm in 250 mls @ 167.007 mls/hr 04/16/19 12:00 04/17/19 12:00 Vancomycin/Ns 1 Gm/250 Ml IV 167.007 mls/hr Q24H SANDHYA Administration Nystatin 100,000 unit 04/15/19 23:22 04/18/19 08:00 Nystatin PO 100,000 unit TID SANDHYA Administration Ondansetron HCl 4 mg 04/14/19 15:30 04/16/19 16:23 Zofran IV 4 mg Q8H PRN Administration Nausea And Vomiting Quetiapine Fumarate 200 mg 04/14/19 22:00 04/17/19 22:02 Seroquel PO 200 mg HS SANDHYA Administration Sodium Chloride 10 ml 04/14/19 22:00 04/18/19 09:27 Sodium Chloride Flush Syringe 10 Ml IV 10 ml BID SANDHYA Administration Sodium Chloride 10 ml 04/14/19 15:30 Sodium Chloride Flush Syringe 10 Ml IV PRN PRN LINE FLUSH
[2019-04-18] MEDS ORDERED: POTASSIUM CHLORIDE ER 20 MEQ TAB PO ONE (10:00)
[2019-04-18] MEDS: VANCOMYCIN/NS 1 GM/250 ML 1 GM/250 ML BAG IV SCH ×2 (12:20→22:40)
--- NOTE | 2019-04-18 12:39 | Progress Note ---
Assessment and Plan Assessment and plan: Chest pain. Follow up serial troponins. Patient reported the pain is transient and related to deep inspiration. V/Q scan of the chest negative. Sepsis UTI and abscess the source of infection. Abd CT revealed both kidneys were enlarged and appeared edematous with possibility of pyelonephritis and/or nephritis. No hydronephrosis. Right nephrolithiasis without obstruction. Patient initiated on IV Cefepime and IV Vancomycin. pressors if necessary. HARDIK (acute kidney injury) IV fluids for now Nephrology consulted ATN is a high possibility Hyponatremia IV NS for now. Resolved Hypokalemia Supplemented Left axillary Abscess Surgery performed I&D Pyelonephritis/UTI (urinary tract infection) CT results noted as above On Cefepime pending culture DVT prophylaxis Disposition. Await ID recommendations for discharge antibiotics. History Interval history: No New issues overnight Hospitalist Physical - Constitutional Vitals: Temp Pulse Resp BP Pulse Ox 98.4 F 111 H 16 110/72 99 04/18/19 11:34 04/18/19 11:34 04/18/19 11:34 04/18/19 11:34 04/18/19 11:34 General appearance: Present: no acute distress, well-nourished - EENT Eyes: Present: PERRL, EOM intact ENT: hearing intact, clear oral mucosa, dentition normal - Neck Neck: Present: supple, normal ROM - Respiratory Respiratory effort: normal Respiratory: bilateral: CTA - Cardiovascular Rhythm: regular Heart Sounds: Present: S1 & S2. Absent: gallop, rub - Extremities Extremities: no ischemia, No edema, Full ROM - Abdominal General gastrointestinal: soft, non-tender, non-distended, normal bowel sounds - Integumentary Integumentary: Present: clear, warm, dry - Neurologic Neurologic: CNII-XII intact, moves all extremities Results - Labs CBC & Chem 7: 04/17/19 07:39 04/18/19 04:51 Labs: Laboratory Last Values WBC 12.6 K/mm3 (4.5-11.0) H 04/17/19 07:39 RBC 3.59 M/mm3 (3.65-5.03) L 04/17/19 07:39 Hgb 9.7 gm/dl (10.1-14.3) L 04/17/19 07:39 Hct 29.3 % (30.3-42.9) L 04/17/19 07:39 MCV 82 fl (79-97) 04/17/19 07:39 MCH 27 pg (28-32) L 04/17/19 07:39 MCHC 33 % (30-34) 04/17/19 07:39 RDW 14.8 % (13.2-15.2) 04/17/19 07:39 Plt Count 79 K/mm3 (140-440) L 04/17/19 07:39 Lymph % (Auto) 4.3 % (13.4-35.0) L 04/17/19 07:39 [place] % (Auto) 5.0 % (0.0-7.3) 04/17/19 07:39 Eos % (Auto) 3.7 % (0.0-4.3) 04/17/19 07:39 Baso % (Auto) 0.1 % (0.0-1.8) 04/17/19 07:39 Lymph # 0.5 K/mm3 (1.2-5.4) L 04/17/19 07:39 [place] # 0.6 K/mm3 (0.0-0.8) 04/17/19 07:39 Eos # 0.5 K/mm3 (0.0-0.4) H 04/17/19 07:39 Baso # 0.0 K/mm3 (0.0-0.1) 04/17/19 07:39 Add Manual Diff Complete 04/16/19 13:18 Total Counted 100 04/16/19 13:18 Seg Neutrophils % 86.9 % (40.0-70.0) H 04/17/19 07:39 Seg Neuts % (Manual) 89.0 % (40.0-70.0) H 04/16/19 13:18 Band Neutrophils % 4.0 % 04/16/19 13:18 Lymphocytes % (Manual) 3.0 % (13.4-35.0) L 04/16/19 13:18 Reactive Lymphs % (Man) 0 % 04/16/19 13:18 Monocytes % (Manual) 0 % (0.0-7.3) 04/16/19 13:18 Eosinophils % (Manual) 4.0 % (0.0-4.3) 04/16/19 13:18 Basophils % (Manual) 0 % (0.0-1.8) 04/16/19 13:18 Metamyelocytes % 0 % 04/16/19 13:18 Myelocytes % 0 % 04/16/19 13:18 Promyelocytes % 0 % 04/16/19 13:18 Blast Cells % 0 % 04/16/19 13:18 Nucleated RBC % Not Reportable 04/16/19 13:18 Seg Neutrophils # 10.9 K/mm3 (1.8-7.7) H 04/17/19 07:39 Seg Neutrophils # Man 12.8 K/mm3 (1.8-7.7) H 04/16/19 13:18 Band Neutrophils # 0.6 K/mm3 04/16/19 13:18 Lymphocytes # (Manual) 0.4 K/mm3 (1.2-5.4) L 04/16/19 13:18 Abs React Lymphs (Man) 0.0 K/mm3 04/16/19 13:18 Monocytes # (Manual) 0.0 K/mm3 (0.0-0.8) 04/16/19 13:18 Eosinophils # (Manual) 0.6 K/mm3 (0.0-0.4) H 04/16/19 13:18 Basophils # (Manual) 0.0 K/mm3 (0.0-0.1) 04/16/19 13:18 Metamyelocytes # 0.0 K/mm3 04/16/19 13:18 Myelocytes # 0.0 K/mm3 04/16/19 13:18 Promyelocytes # 0.0 K/mm3 04/16/19 13:18 Blast Cells # 0.0 K/mm3 04/16/19 13:18 WBC Morphology Not Reportable 04/16/19 13:18 Hypersegmented Neuts Not Reportable 04/16/19 13:18 Hyposegmented Neuts Not Reportable 04/16/19 13:18 Hypogranular Neuts Not Reportable 04/16/19 13:18 Smudge Cells Not Reportable 04/16/19 13:18 Toxic Granulation Not Reportable 04/16/19 13:18 Toxic Vacuolation Not Reportable 04/16/19 13:18 Dohle Bodies Not Reportable 04/16/19 13:18 Pelger-Huet Anomaly Not Reportable 04/16/19 13:18 Ab Rods Not Reportable 04/16/19 13:18 Platelet Estimate Consistent w auto 04/16/19 13:18 Clumped Platelets Not Reportable 04/16/19 13:18 Plt Clumps, EDTA Not Reportable 04/16/19 13:18 Large Platelets Not Reportable 04/16/19 13:18 Giant Platelets Not Reportable 04/16/19 13:18 Platelet Satelliting Not Reportable 04/16/19 13:18 Plt Morphology Comment Not Reportable 04/16/19 13:18 RBC Morphology Normal 04/16/19 13:18 Dimorphic RBCs Not Reportable 04/16/19 13:18 Polychromasia Not Reportable 04/16/19 13:18 Hypochromasia Not Reportable 04/16/19 13:18 Poikilocytosis Not Reportable 04/16/19 13:18 Anisocytosis Not Reportable 04/16/19 13:18 Microcytosis Not Reportable 04/16/19 13:18 Macrocytosis Not Reportable 04/16/19 13:18 Spherocytes Not Reportable 04/16/19 13:18 Pappenheimer Bodies Not Reportable 04/16/19 13:18 Sickle Cells Not Reportable 04/16/19 13:18 Target Cells Not Reportable 04/16/19 13:18 Tear Drop Cells Not Reportable 04/16/19 13:18 Ovalocytes Not Reportable 04/16/19 13:18 Helmet Cells Not Reportable 04/16/19 13:18 [place] Bodies Not Reportable 04/16/19 13:18 [place] Rings Not Reportable 04/16/19 13:18 [place] Cells Not Reportable 04/16/19 13:18 Bite Cells Not Reportable 04/16/19 13:18 Crenated Cell Not Reportable 04/16/19 13:18 Elliptocytes Not Reportable 04/16/19 13:18 Acanthocytes (Spur) Not Reportable 04/16/19 13:18 Rouleaux Not Reportable 04/16/19 13:18 Hemoglobin C Crystals Not Reportable 04/16/19 13:18 Schistocytes Not Reportable 04/16/19 13:18 Malaria parasites Not Reportable 04/16/19 13:18 Mg Bodies Not Reportable 04/16/19 13:18 Hem Pathologist Commnt No 04/16/19 13:18 PT 13.9 Sec. (12.2-14.9) 04/14/19 10:52 INR 1.08 (0.87-1.13) 04/14/19 10:52 D-Dimer 2674.36 ng/mlDDU (0-234) H 04/16/19 13:18 VBG pH 7.468 (7.320-7.420) H 04/14/19 10:52 Sodium 139 mmol/L (137-145) 04/18/19 04:51 Potassium 3.5 mmol/L (3.6-5.0) L 04/18/19 04:51 Chloride 109.1 mmol/L (98-107) H 04/18/19 04:51 Carbon Dioxide 20 mmol/L (22-30) L 04/18/19 04:51 Anion Gap 13 mmol/L 04/18/19 04:51 BUN 15 mg/dL (7-17) 04/18/19 04:51 Creatinine 0.9 mg/dL (0.7-1.2) 04/18/19 04:51 Estimated GFR > 60 ml/min 04/18/19 04:51 BUN/Creatinine Ratio 17 % 04/18/19 04:51 Glucose 124 mg/dL (65-100) H 04/18/19 04:51 Lactic Acid 1.60 mmol/L (0.7-2.0) 04/14/19 14:43 Calcium 7.5 mg/dL (8.4-10.2) L 04/18/19 04:51 Phosphorus 2.70 mg/dL (2.5-4.5) 04/16/19 05:07 Magnesium 2.10 mg/dL (1.7-2.3) 04/17/19 07:39 Total Bilirubin 0.80 mg/dL (0.1-1.2) 04/14/19 10:52 AST 25 units/L (5-40) 04/14/19 10:52 ALT 22 units/L (7-56) 04/14/19 10:52 Alkaline Phosphatase 74 units/L (35-129) 04/14/19 10:52 Troponin T < 0.010 ng/mL (0.00-0.029) 04/18/19 04:51 Total Protein 7.2 g/dL (6.3-8.2) 04/14/19 10:52 Albumin 3.5 g/dL (3.9-5) L 04/14/19 10:52 Albumin/Globulin Ratio 0.9 % 04/14/19 10:52 Urine Color [place] (Yellow) 04/14/19 12:06 Urine Turbidity Cloudy (Clear) 04/14/19 12:06 Urine pH 5.0 (5.0-7.0) 04/14/19 12:06 Ur Specific [place] 1.015 (1.003-1.030) 04/14/19 12:06 Urine Protein 100 mg/dl mg/dL (Negative) 04/14/19 12:06 Urine Glucose (UA) 50 mg/dL (Negative) 04/14/19 12:06 Urine Ketones Neg mg/dL (Negative) 04/14/19 12:06 Urine Blood Mod (Negative) 04/14/19 12:06 Urine Nitrite Neg (Negative) 04/14/19 12:06 Urine Bilirubin Neg (Negative) 04/14/19 12:06 Urine Urobilinogen 4.0 mg/dL (<2.0) 04/14/19 12:06 Ur Leukocyte Esterase Mod (Negative) 04/14/19 12:06 Urine WBC (Auto) 38.0 /HPF (0.0-6.0) H 04/14/19 12:06 Urine RBC (Auto) 14.0 /HPF (0.0-6.0) 04/14/19 12:06 U Epithel Cells (Auto) 7.0 /HPF (0-13.0) 04/14/19 12:06 Urine Bacteria (Auto) 1+ /HPF (Negative) 04/14/19 12:06 Urine Mucus Few /HPF 04/14/19 12:06 Urine Eosinophils .25% (None Seen) 04/15/19 Unknown Urine Creatinine 140.2 mg/dL (0.1-20.0) H 04/15/19 Unknown Urine Sodium 21 mmol/L 04/15/19 Unknown Vancomycin Trough 7.2 ug/mL (5.0-20.0) 04/16/19 05:07 Active Medications - Current Medications Current Medications: Generic Name Dose Route Start Last Admin Trade Name Freq PRN Reason Stop Dose Admin Acetaminophen 650 mg 04/14/19 15:30 04/18/19 08:42 Tylenol PO 650 mg Q4H PRN Administration Pain MILD(1-3)/Fever >100.5/FIGUEROA Acetaminophen/Hydrocodone Bitart 1 each 04/16/19 15:42 04/17/19 16:14 [place] 5/325 PO 1 each Q4H PRN Administration Pain, Moderate (4-6) Doxepin HCl 50 mg 04/14/19 22:00 04/17/19 22:02 Sinequan PO 50 mg HS SANDHYA Administration Gabapentin 800 mg 04/15/19 08:00 04/18/19 08:00 Gabapentin PO 800 mg TID SANDHYA Administration Sodium Chloride 1,000 mls @ 75 mls/hr 04/15/19 23:00 04/18/19 10:07 Nacl 0.9% 1000 Ml IV 75 mls/hr DIRECT SANDHYA Administration Vancomycin HCl 1 gm in 250 mls @ 167.007 mls/hr 04/16/19 12:00 04/18/19 12:20 Vancomycin/Ns 1 Gm/250 Ml IV 167.007 mls/hr Q24H SANDHYA Administration Nystatin 100,000 unit 04/15/19 23:22 04/18/19 08:00 Nystatin PO 100,000 unit TID SANDHYA Administration Ondansetron HCl 4 mg 04/14/19 15:30 04/16/19 16:23 Zofran IV 4 mg Q8H PRN Administration Nausea And Vomiting Quetiapine Fumarate 200 mg 04/14/19 22:00 04/17/19 22:02 Seroquel PO 200 mg HS SANDHYA Administration Sodium Chloride 10 ml 04/14/19 22:00 04/18/19 09:27 Sodium Chloride Flush Syringe 10 Ml IV 10 ml BID SANDHYA Administration Sodium Chloride 10 ml 04/14/19 15:30 Sodium Chloride Flush Syringe 10 Ml IV PRN PRN LINE FLUSH
--- NOTE | 2019-04-18 13:21 | Progress Note ---
Assessment and Plan Cultures: 04/14/2019 blood culture: No growth thus far 04/14/2019 urine culture: skin bouchra 04/16/2019 left axilla abscess: MSSA A/P: 44/F with h/o back pain, previous left axillary wound infection that apparently developed after she underwent a mammogram and was noted to have a lump that needed a biopsy (per patient it turned out to be dense fibrotic tissue) admitted with: 1) Severe sepsis: Source: bilateral pyelonephritis / urinary tract infection v/s left axillary abscess. She has severe b/l flank tenderness, UA with pyuria. Urine culture without any uropathogen. Left axillary abscess with MSSA. 2) Left axillary abscess: s/p I&D by Dr. Rizo on 04/16/2019, culture growing S taph aureus. 3) Acute renal failure: renally dose antibiotics. creatinine improving. 4) Thrombocytopenia Recs: OK for discharge from ID standpoint on PO Keflex 500 mg QID x 7 days discussed with patient, she will return to the hospital if fever comes back or if she is not feeling well / able to tolerate PO Abx d/w Dr. Burnette. Prasanna Ch MD, FACP [facility] C: [phone] O: [phone] F: [phone] Subjective Date of service: 04/18/19 Interval history: Feels almost 95% better today. Had a fever yesterday evening. None today. Pain is much better. Would like to go home today. Objective - Exam Narrative Exam: Physical Exam: Constitutional: Alert, cooperative. No acute distress Head, Ears, Nose: Normocephalic, atraumatic. External ears, nose normal Eyes: Conjunctivae/corneas clear. No icterus. No ptosis. Neck: Supple, no meningeal signs Cardiovascular: S1, S2 normal Respiratory: Good air entry, clear to auscultation bilaterally GI: Soft, non-tender; bowel sounds normal. No peritoneal signs Musculoskeletal: no pedal edema. No CVA tenderness Skin: No rash or abscess other than left axilla Hem/Lymphatic: left axilla dressing +, tenderness +. No lymphangitis Psych: Mood ok. Affect normal Neurological: Awake, alert, oriented. No gross abnormality - Constitutional Vitals: Vital Signs Temp Pulse Resp BP Pulse Ox 98.4 F 111 H 16 110/72 99 04/18/19 11:34 04/18/19 11:34 04/18/19 11:34 04/18/19 11:34 04/18/19 11:34 Temperature -Last 24 Hours Temperature 98.4 F Temperature 98.7 F Temperature 99.1 F Temperature 103.1 F - Labs CBC & Chem 7: 04/17/19 07:39 04/18/19 04:51 Labs: Abnormal lab results 04/18/19 Range/Units 04:51 Potassium 3.5 L (3.6-5.0) mmol/L Chloride 109.1 H (98-107) mmol/L Carbon Dioxide 20 L (22-30) mmol/L Glucose 124 H (65-100) mg/dL Calcium 7.5 L (8.4-10.2) mg/dL
[2019-04-18] MEDS: HYDROcodone/ACETAMINOPHEN 5-325 MG TAB PO PRN (20:10)
[2019-04-18] MEDS ORDERED: MAGNESIUM HYDROXIDE (MOM) ORAL LIQD UDC PO ONE (21:50)
[2019-04-18] MEDS: QUEtiapine 200 MG TAB PO SCH (22:40)
[2019-04-18] MEDS: DOXEPIN 25 MG CAP PO SCH (22:40)
[2019-04-18] MEDS: DOCUSATE SODIUM 100 MG CAP PO SCH (22:41)
[2019-04-19] MEDS: SODIUM CHLORIDE 0.9% 1000 ML 1,000 ML IV SCH (01:23)
[2019-04-19] MEDS: ACETAMINOPHEN 325 MG TAB PO PRN (05:50)
[2019-04-19 05:52] VITALS: BP 128/78
[2019-04-19 06:14] LABS: BUN/Creatinine Ratio 11; Blood Urea Nitrogen 8 mg/dL (7-17); Calcium 7.5 mg/dL (8.4-10.2); Hemolysis Index 2
[2019-04-19] MEDS: GABAPENTIN 400 MG CAP PO SCH (08:14)
[2019-04-19] MEDS: NYSTATIN 500,000 UNIT/5 ML ORAL LIQD PO SCH (08:14)
--- NOTE | 2019-04-19 09:07 | Discharge Summary ---
Providers - Providers Date of Admission: 04/14/19 14:39 Date of discharge: 04/19/19 Attending physician: NEIL MAS 04/15/19 00:48 Consult to Physician [CONS] Routine Comment: Consulting Provider: JOSE ANGEL TELLEZ Physician Instructions: Reason For Exam: HARDIK 04/15/19 00:51 Consult to Physician [CONS] Routine Comment: Consulting Provider: DIANELYS MILLER Physician Instructions: Reason For Exam: L arm abscess 04/15/19 12:35 Consult to Physician [CONS] Routine Comment: Consulting Provider: CHRISTINA ORDONEZ Physician Instructions: Reason For Exam: sepsis 04/16/19 Consult to Cardiac Rehabilitation [CONS] Routine Reason For Exam: Phase I Hospitalization Reason for admission: sepsis, cellulitis Condition: Fair Hospital course: 44 yo F with hx of chronic lower back pain presented to the ER c/o not feeling well for 3 days. She had been having fevers, dysuria, and swelling in her left axilla. Patient stated she had swelling in her axilla many times. The patient was found to have UTI/pyelonephritis and abscess in the left axillary region. Patient was admitted with diagnosis of sepsis secondary to UTI and left axillary cellulitis/abscess. The patient was seen by ID and general surgery in consultation. Patient underwent ultrasound of the left axilla which revealed 5 cm fluid collection that likely represented an abscess. The patient underwent incision and drainage of the abscess with surgery. The wound culture revealed staph aureus. Urine and Blood cultures remained negative. Patient had other convocation as drawn hospital stay as a result of the sepsis with acute kidney injury/ATN. Patient's creatinine was noted to be as high as 3.8 but improved with IV fluid hydration. Patient was seen by nephrology. ID felt the patient could discharge home with by mouth Keflex 500 mg 4 times a day 7 days. It was discussed with the patient that she will return to the hospital if she has any fever. Dedicated discharge time 32 minutes. Disposition: - TO HOME OR SELFCARE Time spent for discharge: 32 - Discharge Diagnoses (1) HARDIK (acute kidney injury) Status: Acute (2) Abscess Status: Acute (3) Left axillary swelling Status: Acute (4) Sepsis Status: Acute Qualifiers: Severe sepsis shock status: without septic shock (5) UTI (urinary tract infection) Status: Acute Qualifiers: Urinary tract infection type: acute cystitis Core Measure Documentation - Palliative Care Palliative Care/ Comfort Measures: Not Applicable - Core Measures Any of the following diagnoses?: none Exam - Constitutional Vitals: Temp Pulse Resp BP Pulse Ox 100.2 F H 125 H 16 128/78 91 04/19/19 05:52 04/19/19 05:52 04/19/19 05:52 04/19/19 05:52 04/19/19 05:52 General appearance: Present: no acute distress, well-nourished - EENT Eyes: Present: PERRL ENT: hearing intact, clear oral mucosa - Neck Neck: Present: supple, normal ROM - Respiratory Respiratory effort: normal Respiratory: bilateral: CTA - Cardiovascular Heart Sounds: Present: S1 & S2. Absent: rub, click - Extremities Extremities: pulses symmetrical, No edema Peripheral Pulses: within normal limits - Abdominal General gastrointestinal: Present: soft, non-tender, non-distended, normal bowel sounds Female genitourinary: Present: normal - Integumentary Integumentary: Present: clear, warm, dry - Musculoskeletal Musculoskeletal: gait normal, strength equal bilaterally - Psychiatric Psychiatric: appropriate mood/affect, intact judgment & insight - Neurologic Neurologic: CNII-XII intact, moves all extremities Plan Activity: advance as tolerated Weight Bearing Status: Weight Bear as Tolerated Diet: regular Follow up with: MIMI GODFREY [Other] - 3-5 Days DIANELYS MILLER DO [Staff Physician] - 14 Days CHRISTINA ORDONEZ MD [Staff Physician] - 7 Days JOSE ANGEL TELLEZ MD [Staff Physician] - 7 Days Prescriptions: cephALEXin [Keflex] 500 mg PO Q6HR #28 capsule Gabapentin [Neurontin] 800 mg PO TID #90 tab-cap HYDROcodone/APAP 5-325 [[place] 5-325 mg TAB] 1 each PO Q4H PRN #12 tablet PRN Reason: Pain, Moderate (4-6) Quetiapine Fumarate [SEROquel] 200 mg PO QHS #30 tab
[2019-04-19] MEDS: VANCOMYCIN/NS 1 GM/250 ML 1 GM/250 ML BAG IV SCH (10:29)
[2019-04-19] MEDS: DOCUSATE SODIUM 100 MG CAP PO SCH (10:29)
--- NOTE | 2019-04-19 12:17 | Progress Note ---
Assessment and Plan HARDIK - Resolved prerenal azotemia with stable BUN/Cr Lytes - Replenish K, f/u Mg, Phos Vitals - Stable Subjective Date of service: 04/19/19 Interval history: Doing fine. No complaint Objective - Vital Signs Vital signs: Vital Signs - 12hr 04/19/19 04/19/19 04/19/19 05:30 05:50 05:52 Temperature 100.2 F H 100.2 F H Pulse Rate 125 H Respiratory 16 17 16 Rate Blood Pressure 128/78 Blood Pressure 128/78 [Right] O2 Sat by Pulse 91 Oximetry - General Appearance General appearance: other (Awake, alert & comfortable) EENT: PERRL Neck: no JVD Respiratory: Present: Clear to Ascultation Cardiology: regular, S1S2 Gastrointestinal: normal Neurologic: no focal deficit Musculoskeletal: other (No Edema) - Lab 04/17/19 07:39 04/19/19 05:03 Most recent lab results Calcium 7.5 mg/dL (8.4-10.2) L 04/19/19 05:03 Phosphorus 2.70 mg/dL (2.5-4.5) 04/16/19 05:07 Magnesium 2.10 mg/dL (1.7-2.3) 04/17/19 07:39 Urine Creatinine 140.2 mg/dL (0.1-20.0) H 04/15/19 Unknown Urine Sodium 21 mmol/L 04/15/19 Unknown Medications & Allergies - Medications Allergies/Adverse Reactions: Allergies No Known Allergies Allergy (Unverified 04/14/19 10:45) Home Medications: Home Medications Medication Instructions Recorded Confirmed Last Taken Type Doxepin [SINEquan] 50 mg PO HS 04/14/19 04/14/19 04/10/19 History Gabapentin [Neurontin] 800 mg PO TID #90 tab-cap 04/19/19 Unknown Rx HYDROcodone/APAP 5-325 [[place] 1 each PO Q4H PRN #12 tablet 04/19/19 Unknown Rx 5-325 mg TAB] Quetiapine Fumarate [SEROquel] 200 mg PO QHS #30 tab 04/19/19 Unknown Rx cephALEXin [Keflex] 500 mg PO Q6HR #28 capsule 04/19/19 Unknown Rx Active Medications: Generic Name Dose Route Start Last Admin Trade Name Freq PRN Reason Stop Dose Admin Acetaminophen 650 mg 04/14/19 15:30 04/19/19 05:50 Tylenol PO 650 mg Q4H PRN Administration Pain MILD(1-3)/Fever >100.5/FIGUEROA Acetaminophen/Hydrocodone Bitart 1 each 04/16/19 15:42 04/18/19 20:10 [place] 5/325 PO 1 each Q4H PRN Administration Pain, Moderate (4-6) Docusate Sodium 100 mg 04/18/19 22:00 04/19/19 10:29 [place] PO 100 mg BID SANDHYA Administration Doxepin HCl 50 mg 04/14/19 22:00 04/18/19 22:40 Sinequan PO 50 mg HS SANDHYA Administration Gabapentin 800 mg 04/15/19 08:00 04/19/19 08:14 Gabapentin PO 800 mg TID SANDHYA Administration Sodium Chloride 1,000 mls @ 75 mls/hr 04/15/19 23:00 04/19/19 01:23 Nacl 0.9% 1000 Ml IV 75 mls/hr DIRECT SANDHYA Administration Vancomycin HCl 1 gm in 250 mls @ 167.007 mls/hr 04/18/19 22:00 04/19/19 10:29 Vancomycin/Ns 1 Gm/250 Ml IV 167.007 mls/hr Q12HR SANDHYA Administration Nystatin 100,000 unit 04/15/19 23:22 04/19/19 08:14 Nystatin PO 100,000 unit TID SANDHYA Administration Ondansetron HCl 4 mg 04/14/19 15:30 04/16/19 16:23 Zofran IV 4 mg Q8H PRN Administration Nausea And Vomiting Quetiapine Fumarate 200 mg 04/14/19 22:00 04/18/19 22:40 Seroquel PO 200 mg HS SANDHYA Administration Sodium Chloride 10 ml 04/14/19 22:00 04/19/19 10:31 Sodium Chloride Flush Syringe 10 Ml IV 10 ml BID SANDHYA Administration Sodium Chloride 10 ml 04/14/19 15:30 Sodium Chloride Flush Syringe 10 Ml IV PRN PRN LINE FLUSH
[2019-04-19] MEDS ORDERED: POTASSIUM CHLORIDE 10 MEQ 10 MEQ/100 ML BAG IV SCH (13:00)
== END 2019-04-19 14:20 | disposition home or self-care (01) | DRG 871 ==
LOC: ED 10:37 → 3A 14:39
PROVIDERS: ADMIT Internal Medicine; ATTEND Hospitalist
PROC: 0X950ZZ Drainage of Left Axilla, Open Approach (ICD-10-PCS; principal; 2019-04-16)
DX: A41.9 Sepsis, unspecified organism (principal); N17.0 Acute kidney failure with tubular necrosis; E87.1 Hypo-osmolality and hyponatremia; L02.412 Cutaneous abscess of left axilla; N30.00 Acute cystitis without hematuria; L03.112 Cellulitis of left axilla; R65.20 Severe sepsis without septic shock; E86.9 Volume depletion, unspecified; F43.10 Post-traumatic stress disorder, unspecified; D69.6 Thrombocytopenia, unspecified; B95.61 Methicillin susceptible Staphylococcus aureus infection as the cause of diseases classified elsewhere; E87.6 Hypokalemia; G89.29 Other chronic pain; F12.90 Cannabis use, unspecified, uncomplicated; Z82.49 Family history of ischemic heart disease and other diseases of the circulatory system; Z79.899 Other long term (current) drug therapy
CPT/HCPCS: 36415; 71045; 74176; 76999; 78582; 80048; 80053; 80202; 81001; 82140; 82570; 82805; 83735; 84100; 84300; 84484; 85007; 85025; 85379; 85610; 87040; 87076; 87086; 87116; 87186; 89050; 93005; 93010; 96374; G0378; A9540; A9558; J0692; J2270; J2405; J3370; J3475; J3480; J7030; J7040; J7050

== ENCOUNTER 2019-05-04 23:25 | Emergency (ER) | payer OTHER ==
[2019-05-05 00:29] LABS: Hematocrit 35.3 % (30.3-42.9); Hemoglobin 11.4 gm/dl (10.1-14.3); Mean Corpuscular HGB Conc 32 % (30-34); Mean Corpuscular Volume 82 fl (79-97); Platelet Count 330 K/mm3 (140-440); Red Blood Count 4.29 M/mm3 (3.65-5.03)
[2019-05-05 01:12] LABS: BUN/Creatinine Ratio 28; Blood Urea Nitrogen 11 mg/dL (7-17); Calcium 9.8 mg/dL (8.4-10.2); Hemolysis Index 8
[2019-05-05] MEDS ORDERED: SODIUM CHLORIDE 0.9% 1000 ML 1,000 ML IV ONE (02:07)
[2019-05-05] MEDS ORDERED: KETOROLAC 30 MG/1 ML INJ IV ONE (02:07)
[2019-05-05 04:28] LABS: Bilirubin,Urine NEG (Negative); Blood,Urine NEG (Negative); Color,Urine Yellow (Yellow); Mucus,Urine 3+ /HPF
--- NOTE | 2019-05-05 04:42 | Emergency Department Report ---
ED General Adult HPI - General Chief complaint: Weakness Stated complaint: FLUCTUATING FEVER, CHILLS, NAUSEA Time Seen by Provider: 05/05/19 02:07 Source: patient Mode of arrival: Ambulatory Limitations: No Limitations - History of Present Illness Initial comments: Patient is a 44-year-old Jasmin female who states for the past 4-5 days she's had some increased weakness fatigue and decreased energy and a mild cough. Patient states her urine is darker than normal but she denies dysuria. Patient is quite concerned because approximately 3 weeks ago she was in the hospital with sepsis and acute kidney injury secondary to an infection in the left axilla where she had an abscess. This area is now healed. Patient is feeling better while on the antibiotics which she states that she is relapsed. Patient does not have any further swelling to the left eczema but she is quite worried that her "sepsis has come back" Severity scale (0 -10): 10 - Related Data Home Medications Medication Instructions Recorded Confirmed Last Taken Doxepin [SINEquan] 50 mg PO HS 04/14/19 04/14/19 04/10/19 Previous Rx's Medication Instructions Recorded Last Taken Type Gabapentin [Neurontin] 800 mg PO TID #90 tab-cap 04/19/19 Unknown Rx HYDROcodone/APAP 5-325 [[place] 1 each PO Q4H PRN #12 tablet 04/19/19 Unknown Rx 5-325 mg TAB] Quetiapine Fumarate [SEROquel] 200 mg PO QHS #30 tab 04/19/19 Unknown Rx cephALEXin [Keflex] 500 mg PO Q6HR #28 capsule 04/19/19 Unknown Rx Benzonatate [Tessalon Perles] 100 mg PO Q8HR #10 capsule 05/05/19 Unknown Rx Nitrofurantoin [place]/M-[place] 100 mg PO Q12HR #14 capsule 05/05/19 Unknown Rx [Macrobid CAP] predniSONE [Deltasone] 20 mg PO QDAY #5 tab 05/05/19 Unknown Rx traMADoL [Ultram] 50 mg PO Q6HR PRN #12 tablet 05/05/19 Unknown Rx Allergies Allergy/AdvReac Type Severity Reaction Status Date / Time No Known Allergies Allergy Unverified 04/14/19 10:45 ED Review of Systems ROS: Stated complaint: FLUCTUATING FEVER, CHILLS, NAUSEA Other details as noted in HPI Comment: All other systems reviewed and negative ED Past Medical Hx - Past Medical History Previous Medical History?: Yes Hx Congestive Heart Failure: No Hx Diabetes: No Hx Kidney Stones: Yes (2009) Hx Asthma: No Hx COPD: No Additional medical history: Chronic lower back pain, Recently hospitalized for Sepsis, Diverticulitis - Surgical History Past Surgical History?: Yes Additional Surgical History: Kidney Stone removal, Infected Lymph Node drainage - Social History Smoking Status: Never Smoker - Medications Home Medications: Home Medications Medication Instructions Recorded Confirmed Last Taken Type Doxepin [SINEquan] 50 mg PO HS 04/14/19 04/14/19 04/10/19 History Gabapentin [Neurontin] 800 mg PO TID #90 tab-cap 04/19/19 Unknown Rx HYDROcodone/APAP 5-325 [[place] 1 each PO Q4H PRN #12 tablet 04/19/19 Unknown Rx 5-325 mg TAB] Quetiapine Fumarate [SEROquel] 200 mg PO QHS #30 tab 04/19/19 Unknown Rx cephALEXin [Keflex] 500 mg PO Q6HR #28 capsule 04/19/19 Unknown Rx Benzonatate [Tessalon Perles] 100 mg PO Q8HR #10 capsule 05/05/19 Unknown Rx Nitrofurantoin [place]/M-[place] 100 mg PO Q12HR #14 capsule 05/05/19 Unknown Rx [Macrobid CAP] predniSONE [Deltasone] 20 mg PO QDAY #5 tab 05/05/19 Unknown Rx traMADoL [Ultram] 50 mg PO Q6HR PRN #12 tablet 05/05/19 Unknown Rx ED Physical Exam - General Limitations: No Limitations General appearance: alert, in no apparent distress - Head Head exam: Present: atraumatic, normocephalic - Eye Eye exam: Present: normal appearance - ENT ENT exam: Present: mucous membranes moist - Neck Neck exam: Present: normal inspection - Respiratory Respiratory exam: Present: normal lung sounds bilaterally. Absent: respiratory distress, wheezes, rales - Cardiovascular Cardiovascular Exam: Present: regular rate, normal rhythm, normal heart sounds. Absent: systolic murmur, diastolic murmur, rubs, gallop - GI/Abdominal GI/Abdominal exam: Present: soft, normal bowel sounds. Absent: distended, tenderness, guarding, rebound - Extremities Exam Extremities exam: Present: normal inspection - Back Exam Back exam: Present: normal inspection - Neurological Exam Neurological exam: Present: alert, oriented X3 - Psychiatric Psychiatric exam: Present: normal affect, normal mood - Skin Skin exam: Present: warm, dry, intact, normal color. Absent: rash ED Course Vital Signs 05/04/19 05/04/19 05/05/19 23:30 23:55 03:20 Temperature 98.7 F 98.7 F Pulse Rate 121 H 125 H Respiratory 18 18 Rate Blood Pressure 145/89 145/89 O2 Sat by Pulse 100 100 100 Oximetry 05/05/19 05/05/19 03:30 03:42 Temperature 99 F Pulse Rate 105 H Respiratory Rate Blood Pressure 129/82 O2 Sat by Pulse Oximetry ED Medical Decision Making - Lab Data Result diagrams: 05/05/19 00:11 05/05/19 00:11 Lab Results 05/05/19 05/05/19 05/05/19 Range/Units 00:11 00:11 03:10 WBC 5.8 (4.5-11.0) K/mm3 RBC 4.29 (3.65-5.03) M/mm3 Hgb 11.4 (10.1-14.3) gm/dl Hct 35.3 (30.3-42.9) % MCV 82 (79-97) fl MCH 27 L (28-32) pg MCHC 32 (30-34) % RDW 14.0 (13.2-15.2) % Plt Count 330 (140-440) K/mm3 Sodium 136 L (137-145) mmol/L Potassium 3.6 (3.6-5.0) mmol/L Chloride 99.0 (98-107) mmol/L Carbon Dioxide 26 (22-30) mmol/L Anion Gap 15 mmol/L BUN 11 (7-17) mg/dL Creatinine 0.4 L (0.7-1.2) mg/dL Estimated GFR > 60 ml/min BUN/Creatinine Ratio 28 % Glucose 106 H (65-100) mg/dL Calcium 9.8 (8.4-10.2) mg/dL Urine Color (Yellow) Urine Turbidity (Clear) Urine pH (5.0-7.0) Ur Specific [place] (1.003-1.030) Urine Protein (Negative) mg/dL Urine Glucose (UA) (Negative) mg/dL Urine Ketones (Negative) mg/dL Urine Blood (Negative) Urine Nitrite (Negative) Urine Bilirubin (Negative) Urine Urobilinogen (<2.0) mg/dL Ur Leukocyte Esterase (Negative) Urine WBC (Auto) (0.0-6.0) /HPF Urine RBC (Auto) (0.0-6.0) /HPF U Epithel Cells (Auto) (0-13.0) /HPF Urine Mucus /HPF Influenza A (Rapid) Negative (Negative) Influenza B (Rapid) Negative (Negative) 05/05/19 Range/Units 03:50 WBC (4.5-11.0) K/mm3 RBC (3.65-5.03) M/mm3 Hgb (10.1-14.3) gm/dl Hct (30.3-42.9) % MCV (79-97) fl MCH (28-32) pg MCHC (30-34) % RDW (13.2-15.2) % Plt Count (140-440) K/mm3 Sodium (137-145) mmol/L Potassium (3.6-5.0) mmol/L Chloride (98-107) mmol/L Carbon Dioxide (22-30) mmol/L Anion Gap mmol/L BUN (7-17) mg/dL Creatinine (0.7-1.2) mg/dL Estimated GFR ml/min BUN/Creatinine Ratio % Glucose (65-100) mg/dL Calcium (8.4-10.2) mg/dL Urine Color Yellow (Yellow) Urine Turbidity Cloudy (Clear) Urine pH 6.0 (5.0-7.0) Ur Specific [place] 1.021 (1.003-1.030) Urine Protein 30 mg/dl (Negative) mg/dL Urine Glucose (UA) Neg (Negative) mg/dL Urine Ketones Tr (Negative) mg/dL Urine Blood Neg (Negative) Urine Nitrite Neg (Negative) Urine Bilirubin Neg (Negative) Urine Urobilinogen 4.0 (<2.0) mg/dL Ur Leukocyte Esterase Lg (Negative) Urine WBC (Auto) 23.0 H (0.0-6.0) /HPF Urine RBC (Auto) 9.0 (0.0-6.0) /HPF U Epithel Cells (Auto) 25.0 H (0-13.0) /HPF Urine Mucus 3+ /HPF Influenza A (Rapid) (Negative) Influenza B (Rapid) (Negative) - Medical Decision Making Patient is having persistent elevation of her leuk esterase in her urine with WBCs. Patient be restarted on antibiotic to cover for UTI. Patient was hydrated and is feeling improvement. Patient's flu test was negative but the patient has not been ruled out for flulike illness causing her cough and fatigue. Critical care attestation.: If time is entered above; I have spent that time in minutes in the direct care of this critically ill patient, excluding procedure time. ED Disposition Clinical Impression: UTI (urinary tract infection), Flu-like symptoms Disposition: DC- TO HOME OR SELFCARE Is pt being admited?: No Does the pt Need Aspirin: No Condition: Stable Instructions: Upper Respiratory Infection (ED), Urinary Tract Infection in Women (ED) Referrals: JONATHAN LE MD [Primary Care Provider] - 3-5 Days Time of Disposition: 05:04
[2019-05-05 05:06] VITALS: BP 135/82
== END 2019-05-05 05:30 | disposition home or self-care (01) ==
LOC: ED 23:25
DX: N39.0 Urinary tract infection, site not specified (principal); R11.2 Nausea with vomiting, unspecified; Z87.442 Personal history of urinary calculi; Z90.49 Acquired absence of other specified parts of digestive tract; Z79.899 Other long term (current) drug therapy
CPT/HCPCS: 36415; 80048; 81001; 85027; 87086; 87400; 96361; 96374; 99283; J1885; J7030; 87076; 87186